=== PATIENT | male | born 1955 | race Caucasian/White ===

== ENCOUNTER 2023-06-17 21:37 | Inpatient (IN) | payer MEDICARE, OTHER, SELFPAY ==
[2023-06-17 17:51] VITALS: BP 149/91
[2023-06-17 18:27] VITALS: BP 157/86
[2023-06-17 18:30] VITALS: BP 157/86
[2023-06-17 19:00] VITALS: BP 154/81
[2023-06-17 19:25] LABS: % Eosinophils 0.3 % (0-6); % Immature Granulocytes 0.3 % (0-0.5); % Lymphocytes 7.1 % (20.5-51.1); % Monocytes 9.3 % (1.7-9.3); Absolute Lymphocytes 0.2 10^3/uL (1.2-3.4); Absolute Monocytes 0.3 10^3/uL (0.1-0.6); Absolute Neutrophils 2.6 10^3/uL (1.4-6.5); Hematocrit 21.8 % (39.0-52.0); Hemoglobin 7.5 g/dL (13.0-18.0); Mean Corp Hgb Conc. 34.4 g/dL (33.0-37.0); Mean Corpuscular Hgb 32.2 pg (27.0-31.0); Mean Corpuscular Volume 93.6 fL (80.0-94.0); Nucleated Red Blood Cells % 0 % (-); Red Blood Cell Count 2.33 10^6/uL (4.70-6.10); Red Cell Dist. Width 16.8 % (11.5-14.5); White Blood Cell Count 3.1 10^3/uL (4.8-10.8)
[2023-06-17 19:32] LABS: INR 1.25; PT 15.8 Sec (11.4-14.6)
[2023-06-17 19:33] LABS: APTT 34.7 Sec (23.4-35.0)
[2023-06-17 19:35] LABS: ALT (SGPT) 20 U/L (0-50); AST (SGOT) 30 U/L (17-59); Alkaline Phosphatase 83 U/L (38-126); Blood Urea Nitrogen 31 mg/dl (9-20); Calcium 8.4 mg/dl (8.4-10.2); Carbon Dioxide 19 mmol/L (22-30); Chloride 105 mmol/L (98-107); Glucose 67 mg/dl (70-99); Lipase < 10 U/L (23-300); Potassium 3.4 mmol/L (3.5-5.1); Sodium 133 mmol/L (135-145); Total Bilirubin 1.4 mg/dl (0.2-1.3); Total Protein 5.1 g/dl (6.3-8.2); eGFR > 60.00
--- NOTE | 2023-06-17 19:36 | ED.GENMED ---
History of Present Illness
General
Chief Complaint: Abdominal Pain
Source: patient
Time Seen by Provider: 06/17/23 18:38
Travel History
Have you had any contact with someone who has COVID-19?: No
Do you have any symptoms of coronavirus? Fever > 100 degrees, chills, cough, shortness of breath, sore throat, loss of taste or smell, muscle aches, or headache?: No
History of Present Illness
History of Present Illness:
68-year-old male with past medical history of pancreatic cancer with colon metastases and liver metastases presenting to the emergency department after he had an outpatient CT scan done last night which showed a small bowel obstruction. Patient
notes for around the last 6 days he has had persistent nausea and vomiting that he states was different than his usual postchemotherapy nausea and vomiting stating that anytime he would eat or drink he would either have vomiting or diarrhea. He
tried a brat diet for 3 days without any relief and then went to an all liquid diet which she states also did not work. He states he is not nauseous or having any pain presently and feels maybe a little bit dehydrated but otherwise his usual self.
He denies any fevers or chills or any other concerns.
Past History
Past History
ED Past Medical History: Cancer
ED Past Surgical History: Urological and Other
Social History
Tobacco: Non-smoker
Alcohol: None
Drug: None
Personal:
Living: with family
Employment: Retired
Review of Systems
Review of Systems
All Other Systems: ROS reviewed and negative except as documented in HPI and ROS
Phy Exam
Physical Exam
Physical Exam:
GENERAL: Alert , in no apparent distress, thin
EYE: clear conjunctiva b/l
HEAD: NCAT
ENT: o/p clr, mmm.
CARDIAC: Regular rate and rhythm .
LUNGS: Clear breath sounds bilaterally, no acute respiratory distress, no wheezes/rales/rhonchi
ABDOMEN: Soft, distended, hypoactive bowel sounds, without focal tenderness,no r/g, no cvat
NEUROLOGICAL: Alert and oriented
SKIN: Warm and dry, skin intact.
MUSCULOSKELETAL: No edema, well perfused.
PSYCH: Normal and appropriate interaction.
Scores
Heart Failure Risk
Heart Failure Risk Score: Not Applicable
Heart Score for Chest Pain Patients
STEMI patient?: Not applicable
Withdrawal Assessment of Alcohol
Withdrawal Assessment Completed?: Not applicable
Course
Orders/Labs/Results
Orders:
Orders
06/17/23 19:01
CR Obstruct Series W/pa Chest Urgent
Comment:
Reason For Exam: bowel obstruction, hx pancreatic cancer
06/17/23 19:07
Type+Screen Urgent
Complete Blood Count/With Diff Urgent
Comprehensive Metabolic Panel Urgent
Lipase Urgent
PTT Urgent
Prothrombin Time Urgent
06/17/23 19:42
NG Tube [GI tube insertion- Treatment] ONCE
06/17/23 20:00
0.9% Sodium Chloride 1000 ml [Nss] 1,000 ml IV 100 mls/hr
Abnormal Lab Results
06/17/23
19:07
WBC 3.1 L 10^3/uL
(4.8-10.8)
RBC 2.33 L 10^6/uL
(4.70-6.10)
Hgb 7.5 L g/dL
(13.0-18.0)
Hct 21.8 L %
(39.0-52.0)
MCH 32.2 H pg
(27.0-31.0)
RDW 16.8 H %
(11.5-14.5)
Plt Count 53 L 10^3/uL
(130-400)
Absolute Lymphs (auto) 0.2 L 10^3/uL
(1.2-3.4)
Neutrophils % 83.0 H %
(42.2-75.2)
Lymphocytes % 7.1 L %
(20.5-51.1)
PT 15.8 H Sec
(11.4-14.6)
Sodium 133 L mmol/L
(135-145)
Potassium 3.4 L mmol/L
(3.5-5.1)
Carbon Dioxide 19 L mmol/L
(22-30)
BUN 31 H mg/dl
(9-20)
Glucose 67 L mg/dl
(70-99)
Total Bilirubin 1.4 H mg/dl
(0.2-1.3)
Total Protein 5.1 L g/dl
(6.3-8.2)
Albumin 3.0 L g/dl
(3.5-5.0)
Lipase < 10 L U/L
(23-300)
06/17/23 19:07
06/17/23 19:07
Vital Signs
Initial and Last Documented VS:
Initial Vital Signs
Temp Pulse Resp BP Pulse Ox
98.3 F 90 16 149/91 100
06/17/23 17:51 06/17/23 17:51 06/17/23 17:51 06/17/23 17:51 06/17/23 17:51
Last Documented Vital Signs
Temp Pulse Resp BP Pulse Ox
98.3 F 79 16 157/86 97
06/17/23 17:51 06/17/23 18:30 06/17/23 18:30 06/17/23 18:30 06/17/23 18:30
MDM/Problems Addressed
Differential Diagnosis Includes:
bowel obstruction, worsening malignancy, electrolyte disturbance
MDM/Problems Addressed:
68-year-old male with known pancreatic cancer and known bowel obstruction presenting to the emergency department request of his cancer team to be admitted for treatment of bowel obstruction. Patient has been attempting brat diet and liquid diet
with no relief. Abdomen is distended. Will discuss case with general surgery. Plan to obtain x-ray obstructive series to evaluate. Lab work ordered. Will order fluids for hydration.
Chronic conditions affecting care: Cancer
Acute Exacerbation and/or Progression of Chronic Illness: Cancer
*Radiology
Radiology exam reviewed: preliminary read by ED provider (Small bowel obstruction)
*Pulse Oximetry
Patient hypoxic: no
*Critical Care Note
Total Time (30-74mins, 75-104mins- exclusive of procedures): Not Applicable
Data Reviewed
Review of Other/Old Records Reveals: Radiology Studies
Patient Management
Discussion with other providers: Hospitalist and Soldering Machine Operator Helper
Escalation/DeEscalation of care consider admission/obs:
Case discussed with surgery who is requesting an NG tube be placed. They will consult on the patient in the morning. Hospitalist team is aware and accepts for continued evaluation and treatment. Due to patient's hemoglobin of 7.5 I did consent
him for blood products if hemoglobin continues to drop.
ED Attending Note
-
Portions of this chart may have been created with voice recognition software.� Occasional wrong word or��sound alike� substitutions may have occurred due to the inherent limitations of voice recognition software.
Discharge Plan
Departure
Patient Disposition: Admit
Date of Disposition: 06/17/23
Time of Disposition: 19:53
Presentation/result/management discussed w/ accepting MD/DO: Hospitalist
Discharge Problem:
Small bowel obstruction
Prescriptions:
No Action
valsartan 160 mg Tablet
160 mg PO DAILY
oxycodone 10 mg Tablet
10 mg PO HSPRN PRN (Reason: severe pain)
Creon 24,000-76,000 -120,000 unit Capsule,Delayed Release(Dr/Ec)
3 cap PO MEALS
rivaroxaban 10 mg Tablet
10 mg PO .SEE BELOW
Patient Comments:
06/17/2023, pt. stopped taking this med. in anticipation for invasive surgery. Prescribed to take daily.
loperamide [Imodium] 2 mg Capsule
2 mg PO DIRECTED PRN (Reason: diarrhea)
Rx Instructions:
06/17/2023, take 2 capsules at onset of loose stool and then one capsule for additional loose stool thereafter.
Interventions
Interventions:
*Risk Screen - Suicide Last Done: 06/17/23 17:51
*General Assessment Last Done: 06/17/23 17:51
*Neglect/Abuse Screening Last Done: 06/17/23 17:51
*ED COVID-19 Vaccine History Last Done: 06/17/23 17:51
XI-Hhxajq-Jtckhlxizf Assessment Last Done: 06/17/23 17:51
Discharge Date and Time
Print Language: MEXICAN
[2023-06-17 19:38] LABS: Mean Platelet Volume 10.1 fL (7.4-10.4)
[2023-06-17 19:39] LABS: Platelet Count 53 10^3/uL (130-400)
[2023-06-17 20:23] VITALS: BP 152/82
--- NOTE | 2023-06-17 20:23 | PHANOTE ---
06/17/2023, med rec tech, spoke to pt. to obtain their med. history; pt. states to have stopped taking his ferrous sulfate 325 mg BID about a week ago. Did not include on med rec.
[2023-06-17 21:00] VITALS: BP 160/88
[2023-06-17] MEDS: NSS 1000 IV (21:11)
--- NOTE | 2023-06-17 21:11 | HPS.HSE ---
Family Physician
-
Family Physician:
Chief Complaint
-
N/V, Abd Pain
History of Present Illness
Patient is a 68y M with PMH significant for pancreatic cancer who presents to ED complaining of abdominal pain, nausea and vomiting. Patient is on chemotherapy for pancreatic cancer and states that his last treatment was 06/10. He has been
having crampy abdominal pain, intermittent loose / liquid stools, mid-abdominal pain and nausea with emesis. He denies any black / bloody stools, hematemesis, etc. Patient has CT scans every 3 months for surveillance and notes that he went early
for this CT (only one month since last scan) due to his new symptoms. He denies any fevers or chills. No urinary complaints. No cough, chest pain, etc.
CT scan done 06/15 at [place], [place] showed pancreatic cancer with serosal implants and evidence for proximal small bowel obstruction.
Patient was contacted at 3PM today with these results and presented to the ED here for further evaluation and treatment.
Patient was initially diagnosed with pancreatic adenocarcinoma about 2 years ago. He has been treated with chemotherapy including FOLFIRINOX followed by FOLFIRI. This was changed to Abraxane + gemcitabine in July 2022 due to progression of disease.
He has remained on this regimen since that time. Patient also underwent 15 sessions of XRT in 02/2022.
He has been followed at [facility].
Medical History
Past Medical History
Past Medical History: Reports Other
Additional Past Medical History:
Stage IV Pancreatic Adenocarcinoma
Prostate Cancer
Chronic Lymphedema
Nephrolithiasis
Past Surgical History: Reports Other
Additional Past Surgical History:
T&A
Left Inguinal Open Hernia Repair
Septoplasty
Robotic Prostatectomy
R ACW Port Placement
Social History
Tobacco: Non-smoker
Alcohol: None
Drug: None
Family History
Family History: Not pertinent
Allergies / Home Medications
Allergies reflects when Allergies were last updated in [facility].
Home Medications with original date entered in [facility]
Allergy/Medication List:
Allergies
Allergy/AdvReac Type Severity Reaction Status Date / Time
No Known Allergies Allergy Unverified 06/17/23 17:57
Home Medications
vcpemx-rxpxevqu-yulfmcd 24,000-76,000-120,000 unit capsule,delayed rel (Creon) 3 cap PO MEALS 06/17/23
loperamide 2 mg capsule 2 mg PO DIRECTED PRN diarrhea 06/17/23
oxycodone 10 mg tablet 10 mg PO HSPRN PRN severe pain 06/17/23
rivaroxaban 10 mg tablet 10 mg PO .SEE BELOW 06/17/23
valsartan 160 mg tablet 160 mg PO DAILY 06/17/23
Review of Systems
-
History Source: Patient
A 12 point ROS was completed and negative except as noted: Yes
Constitutional: Reports Fatigue; Denies Fever or Chills
Respiratory: Denies Cough or Trouble Breathing
Cardiac: Denies Chest Pain or Palpitations
Abdomen/GI: Reports Abdominal Pain, Nausea, Vomiting and Diarrhea; Denies Bloody Stools or Black Stools
: Denies Dysuria, Frequency or Flank Pain
Musculoskeletal: Reports Edema; Denies Joint Pain
Neurological: Denies Dizzy or Headache
Psych: Denies Depression or Anxiety
Physical Exam
Vital Signs
Vital Signs
Temp Pulse Resp BP Pulse Ox
98.3 F 80 17 160/88 98
06/17/23 17:51 06/17/23 19:00 06/17/23 19:00 06/17/23 21:00 06/17/23 21:01
Physical Exam
General: Other (Pale, cachectic 68y M in mild distress due to nausea / discomfort.)
HEENT: Other (NG in place in L nostril. Some mild oozing blood. Dry MM.)
Respiratory: Clear; No Wheezes, Rales or Rhonchi
Cardiac: S1/S2 and Regular Rhythm; No Murmur
GI: Soft, Non Distended and Other (High-pitched bowel sounds are present. Pos lower abdominal tenderness and voluntary guarding. )
Musculoskeletal: No Clubbing, No Cyanosis and Other (1+ LE edema with chronic venous stasis skin changes, erythema, hyperkeratosis.)
Neuro: AO x 3
Laboratory Results
-
06/17/23 19:07
06/17/23 19:07
Laboratory Results
PT 15.8 Sec (11.4-14.6) H 06/17/23 19:07
INR 1.25 06/17/23 19:07
APTT 34.7 Sec (23.4-35.0) 06/17/23 19:07
Total Bilirubin 1.4 mg/dl (0.2-1.3) H 06/17/23 19:07
AST 30 U/L (17-59) 06/17/23 19:07
ALT 20 U/L (0-50) 06/17/23 19:07
Alkaline Phosphatase 83 U/L (38-126) 06/17/23 19:07
Lipase < 10 U/L (23-300) L 06/17/23 19:07
Impression/Plan
-
A/P: Patient is a 68y M with PMH significant for pancreatic cancer on chemotherapy who presents to ED complaining of abd pain, N/V/D and had outpatient CT showing SBO.
Partial SBO
- Admit for further evaluation and treatment.
- Patient notes that he continues to have occasional loose / liquid stools.
- NG placed in the ED for decompression.
- CT done at [facility] yesterday shows serosal implants and SBO. Report on chart. Will send for images / CD.
- Supportive care including NPO, IVFs, pain control, etc.
- Surgery evaluation.
- Follow for any new / worsening symptoms.
Stage IV Adenocarcinoma of the Pancreas
- Hold active chemotherapy acutely (last dose was 06/10).
- Continue supportive care including pain control, etc.
- Local Oncology evaluation.
Pancytopenia
- Likely secondary to chemotherapy.
- Follow for changes in cell counts and consider transfusion support if needed.
- Patient is not currently neutropenic.
Benign Hypertension
- On ARB for BP and lymphedema management.
- Hold acutely and resume once able to tolerate POs.
Chronic Lymphedema
Chronic Venous Stasis Skin Changes
- LE skin changes secondary to lymphedema versus chemo.
- Wound Care eval for topical care recommendations.
DVT Prophylaxis: SCDs
Code Status: DNR
[2023-06-17 21:57] VITALS: BMI 21.5
[2023-06-17] MEDS: D5LR 1000 IV (22:39)
[2023-06-18] VITALS (26 sets, daily range): BP systolic 145–177; BP diastolic 77–97; PULSE 78–98; BMI 21.8
--- NOTE | 2023-06-18 00:16 | SUR.PHASEI ---
Pt AAOx3, NSR on monitor. 96% on RA. Pt able to ambulate from stretcher to bed with assist of one. C/o mild chronic abdominal pain which he denies intervention for. D5Lr running through L forearm at 100mls/hr, per MAY. NGT patent in L nare with a
small amount of sanguinous drainage at insertion site. Call harrison placed within reach. Pt instructed to notify this RN of worsening signs/symptoms
[2023-06-18 05:22] LABS: Mean Corp Hgb Conc. 34.4 g/dL (33.0-37.0); Mean Corpuscular Hgb 32.2 pg (27.0-31.0); Mean Corpuscular Volume 93.6 fL (80.0-94.0); Mean Platelet Volume 12.2 fL (7.4-10.4); Platelet Count 48 10^3/uL (130-400); Red Blood Cell Count 2.02 10^6/uL (4.70-6.10); Red Cell Dist. Width 16.4 % (11.5-14.5); White Blood Cell Count 2.8 10^3/uL (4.8-10.8)
[2023-06-18 05:36] LABS: Hematocrit 18.9 % (39.0-52.0); Hemoglobin 6.5 g/dL (13.0-18.0)
[2023-06-18 05:42] LABS: Blood Urea Nitrogen 29 mg/dl (9-20); Calcium 8.1 mg/dl (8.4-10.2); Carbon Dioxide 24 mmol/L (22-30); Chloride 104 mmol/L (98-107); Estimated Creatinine Clearance 73 ml/min; Glucose 86 mg/dl (70-99); Potassium 3.2 mmol/L (3.5-5.1); Sodium 136 mmol/L (135-145); eGFR > 60.00
--- NOTE | 2023-06-18 06:06 | PTCARENOTE ---
Addendum entered by Sloane Echevarria 06/18/23 07:45:
HR noted to increase from 70s-80s to 130s-140s with standing.
Original Note:
Pt AAOx3, NSR on monitor. 96% on RA. Pt able to ambulate from stretcher to bed with assist of one. C/o mild chronic abdominal pain which he denies intervention for. D5Lr running through L forearm at 100mls/hr, per MAY. NGT patent in L nare with a
small amount of sanguinous drainage at insertion site. Call harrison placed within reach. Pt instructed to notify this RN of worsening signs/symptoms. Pt did not void throughout shift. This RN bladder scanned for >400, prompted pt to void. Pt used BSCx1
to pass liquid BM and void in urinal 250ml. This RN performed post void residual BS for 190. Pt instructed to continue to void as needed and this RN will pass along to nursing need for continued bladder scan.
[2023-06-18] MEDS: KCL 270 MEQ IV (06:20)
[2023-06-18] MEDS: NSS (PRESERVATIVE FREE) 10 ML IV (08:47)
[2023-06-18] MEDS: PROTONIX IV 40 MG IV (08:48)
[2023-06-18] MEDS: APRESOLINE 5 MG IV (08:52)
[2023-06-18] MEDS: D5LR 1000 IV (09:21)
--- NOTE | 2023-06-18 10:40 | PTCARENOTE ---
First of 2 units PRBCs hung at 10:30. Pt with no s/s transfusion reaction at this time.
--- NOTE | 2023-06-18 10:44 | WOUNDNOTE ---
[facility] RN note: Patient admitted with abdominal pain n/v
See H&P for complete history.
PMH: Pancreatic cancer, last chemo 3/, lymphedema
Wound Location and type/assessment: Patient admitted with: Skin changes to LE caused by chemo vs. venous stasis. Patient also has had lymphedema in thighs/scrotum during cancer treatment, but this has resolved. LE are dry, skin is pink in
appearance. + pedal pulses, trace edema. Patient wearing pneumatic compression as ordered. Sacrum and heels intact
Appetite: Currently NPO
Pressure redistribution devices in place: Centrella Max Air with heels off-loaded on pillows. Patient is able to turn and reposition self in bed and states he ambulates from house to mailbox daily.
Plan: Aquaphor to LE. Patient given Size F Tubi budget record clerk for use at home. He also wears compression stockings at home but would like to try the tubi-budget record clerk. Will confirm orders with hospitalist and update nurse. Updated care plan and will follow as
needed.
--- NOTE | 2023-06-18 10:52 | CON.GS ---
Medical History
-
Chief Complaint: Abdominal pain, nausea, emesis
History of Present Illness:
Patient is a 68 yo M with PMH of nephrolithiasis, prostate cancer s/p robotic prostatectomy in 2020, s/p open RIGHT inguinal hernia repair with mesh, and stage IV prostate cancer with known mets to the liver, abdominal cavity, RIGHT lung, and
pelvis. Initial diagnosis of his pancreas cancer just under 2 years ago. He currently has been receiving oncologic care through [facility] in [facility]. Previously on FOLFIRINOX, followed by FOLFIRI, and currently on
Gemcitabine and Abraxane. His last treatment was on 06/10. He also underwent XRT in 2021. He states that over the past month he has had 2 prior attacks of more severe abdominal discomfort which lasted a few days before self resolving. Recently he
has had approximately 1 week of worsening crampy abdominal pain, nausea, and vomiting. He has continued to pass flatus and loose, nonbloody stools. He denies any dark tarry stools. He was initially on a softer food diet, but then transition to a
liquid diet with persistence of his symptoms. He underwent an outpatient CT scan in [place] with a report concerning for proximal small bowel obstruction secondary to mid abdominal serosal implant, unchanged pancreatic mass and hepatic
metastases, increased ascites and bilateral pleural effusions. He denies any fevers or chills. Currently he states that his abdominal pain is slightly improved.
Past Medical History
Past Medical History: Cancer (Prostate and pancreatic), HTN and Other (Pancreatic insufficiency, nephrolithiasis)
Past Surgical History: Hernia Repair (Open RIH) and Urological (Robotic prostatectomy)
Social History
Tobacco: Non-Smoker
Alcohol: Former (Used to drink 2 a day, quit years ago)
Drug: None
Personal:
Living: With Family
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
Family History
Family History: Reviewed & Noncontributory
Allergies / Home Medications
Allergy/AdvReac Type Severity Reaction Status Date / Time
No Known Allergies Allergy Unverified 06/17/23 17:57
�Medication �Instructions �Recorded �Confirmed �Type
nrazrb-iiqprlps-bpwgimz 3 cap PO MEALS Gastrointestinal 06/17/23 06/17/23 History
24,000-76,000-120,000 unit Issue
capsule,delayed rel (Creon)
loperamide 2 mg capsule 2 mg PO DIRECTED PRN diarrhea 06/17/23 06/17/23 History
oxycodone 10 mg tablet 10 mg PO HSPRN PRN severe pain 06/17/23 06/17/23 History
rivaroxaban 10 mg tablet 10 mg PO .SEE BELOW Blood 06/17/23 06/17/23 History
Clot Prevention/Tx
valsartan 160 mg tablet 160 mg PO DAILY Blood Pressure 06/17/23 06/17/23 History
Review of Systems
-
A 10 point review of systems was completed, and was negative except as per HPI.
Physical Exam
Vital Signs
Temp Pulse Resp BP Pulse Ox
98.1 F 78 9 153/83 97
06/18/23 10:49 06/18/23 10:49 06/18/23 10:49 06/18/23 10:49 06/18/23 10:49
06/17/23 06/18/23 06/19/23
06:59 06:59 06:59
Actual Weight 66.9 kg
Body Mass Index (BMI) 21.8
Lab Results
06/18/23 04:51
06/18/23 04:51
WBC 2.8 10^3/uL (4.8-10.8) L 06/18/23 04:51
Hgb 6.5 g/dL (13.0-18.0) L* 06/18/23 04:51
Hct 18.9 % (39.0-52.0) L* 06/18/23 04:51
Plt Count 48 10^3/uL (130-400) L 06/18/23 04:51
Abs Immat Gran (auto) 0.0 10^3/uL (0-0.05) 06/17/23 19:07
Neutrophils % 83.0 % (42.2-75.2) H 06/17/23 19:07
Physical Exam
General: No Apparent Distress and Other (Cachectic)
HEENT: Scleral Icterus (Mild) and Other (NGT with non-bilious outputs)
Respiratory: Non Labored Respirations
Cardiac: Regular Rhythm
GI: Soft, Non Tender, Distended (Mild/moderate), Incisions (Well healed) and Other (Non-peritoneal)
Genito-urinary: Inguinal Hernia (LIH, reducible)
Musculoskeletal: No Edema
Skin: Warm and Dry
Neuro: Nonfocal/Grossly Intact
Data Reviewed
-
Radiology: Image Personally Visualized and interpreted and Report Reviewed by me
CT Scan: Report Reviewed by me (Oupatient CT scan)
Labs: Labs Reviewed by me
Assessment / Plan
-
Patient is a 68 yo M p/w malignant SBO secondary to metastatic pancreatic cancer
Role of surgery for palliative bypass was reviewed. We also briefly discussed option of palliative PEG or J-tube, however, limitations of PEG as a relates to decompression and inability to use for enteral access as well as limitations of J-tube for
decompressing obstruction were reviewed. He is at increased risk for operative complications both immediately on long-term. Risks of anastomotic leak, wound complications, and recurrent obstructions were reviewed. Currently, he is a poor operative
candidate given his leukopenia, anemia, thrombocytopenia. Oncology consult noted. Recommend palliative care consult. Optimization for OR over the ensuing days. Recommend medical management with NGT decompression. Tentative plan for a repeat CT
scan of the abdomen pelvis with oral and IV contrast tomorrow, for potential operative planning, confirmation of persistent SBO, and to rule out a more distal obstruction (reports of perirectal mass on outpatient CT). Patient is very understanding
and well versed, agrees with management strategy.
-- NPO, NGT decompression
-- Plan to initiate TPN, port in place and position confirmed
-- Medical management and optimization over the ensuing days, may need platelet transfusion
-- Repeat CT with PO and IV contrast tomorrow
-- Oncology consult noted
-- Rec Palliative care consult
--- NOTE | 2023-06-18 11:35 | CON.ONC ---
Impression
Impression
Pancytopenia post Gemzar and Abraxane
SBO likely secondary to progressive disease
Left lower lobe infiltrate/atelectasis symptomatic
Anemia hemoglobin 6.5 g/dL following hydration
Plan
Plan
Patient appears to have progressed on 2 lines of standard of care therapy current progression may be related to decreased density
Transfuse hemoglobin < 7.0 g/dl platelets <20 K
Continue supportive measures
Previously refused to clinical trial
Welcome to transition his oncology care to [place]
Patient History
History of Present Illness
Patient is a 68 yo M with PMH of nephrolithiasis, prostate cancer s/p robotic prostatectomy in 2020 and stage IV pancreatic cancer with known mets to the liver, abdominal cavity lung, and pelvis. Initial diagnosis of his pancreas cancer just under
2 years ago. He currently has been receiving oncologic care through [facility] in [facility]. Previously on FOLFIRINOX modified to FOLFIRI=>PD=>Gemcitabine and Abraxane. Dose intensity has been difficult secondary to
renal insufficiency and pancytopenia. Current and clinical circumcised likely reflect progressive disease with last treatment was on 06/10. He also underwent XRT in 2021. He states that over the past month he has had 2 prior episodes of severe
abdominal discomfort which lasted a few days before self resolving. Recently he has had approximately 1 week of worsening crampy abdominal pain, nausea, and vomiting. He has continued to pass flatus and loose, nonbloody stools. He denies any dark
tarry stools. He was initially on a softer food diet, but then transition to a liquid diet with persistence of his symptoms. He underwent an outpatient CT scan in [place] with a report concerning for proximal small bowel obstruction secondary
to mid abdominal serosal implant, unchanged pancreatic mass and hepatic metastases, increased ascites and bilateral pleural effusions. He denies any fevers or chills. Currently he states that his abdominal pain is slightly improved with NG tube in
place.
Past-Medical/Surgical History
Past Medical History
Past Medical History: Cancer local prostate carcinoma status post prostatectomy and more recently metastatic pancreatic, HTN and nephrolithiasis
Past Surgical History: Hernia Repair (Open RIH) and Urological (Robotic prostatectomy)
Social History
Tobacco: Non-Smoker
Alcohol: Former (Used to drink 2 a day, quit years ago)
Drug: None
Personal:
Living: With Family
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
Family History
Family History: Reviewed & Noncontributory
Patient Medication
�Medication �Instructions �Recorded �Confirmed �Last Taken �Type
[id number] 3 cap PO MEALS Gastrointestinal 06/17/23 06/17/23 06/16/23 History
24,000-76,000-120,000 unit Issue
capsule,delayed rel (Creon)
loperamide 2 mg capsule 2 mg PO DIRECTED PRN diarrhea 06/17/23 06/17/23 06/12/23 History
4 mg
oxycodone 10 mg tablet 10 mg PO HSPRN PRN severe pain 06/17/23 06/17/23 06/17/23 01:00 History
rivaroxaban 10 mg tablet 10 mg PO .SEE BELOW Blood 06/17/23 06/17/23 06/13/23 History
Clot Prevention/Tx
valsartan 160 mg tablet 160 mg PO DAILY Blood Pressure 06/17/23 06/17/23 06/16/23 History
Active Medications
Generic Name Dose Route Start Last Admin
Trade Name Freq PRN Reason Stop Dose Admin
Acetaminophen 650 mg 06/17/23 21:49
Acetaminophen 650 Mg Rectal Suppository RECTAL 07/15/23 21:48
Q4HPRN PRN
mild pain/PATRICIO/temp> 100.4F
Dextrose 12.5 grams 06/17/23 21:49
Dextrose 50% (0.5 Grams/Ml) 50 Ml Syringe IV 07/15/23 21:48
[id number] PRN
hypoglycemia
Protocol
Emollient Ointment 0 applic 06/18/23 11:00
Petrolatum/Mineral Oil (Hydrophor) Oint 100 Gram TOPICAL 07/16/23 10:59
DAILY AZUL
Glucagon 1 mg 06/17/23 21:49
Glucagon 1 Mg Vial IM 07/15/23 21:48
PRN PRN
hypoglycemia
Protocol
Hydralazine HCl 5 mg 06/18/23 08:12 06/18/23 08:52
Hydralazine 20 Mg/Ml Vial IV 07/16/23 08:11 5 mg
Q6HPRN PRN Administration
SBP>160
Hydromorphone HCl 0.5 mg 06/17/23 21:49
Hydromorphone 0.5 Mg/0.5 Ml Syringe IV 07/01/23 21:48
Q4HPRN PRN
severe pain
Dextrose/Lactated Ringer's 1,000 mls @ 100 mls/hr 06/17/23 22:00 06/18/23 09:21
D5lr IV 1,000 mls
.Q10H AZUL Administration
Ondansetron HCl 4 mg 06/17/23 21:49
Ondansetron 4 Mg/2 Ml Vial IV 07/15/23 21:48
Q6HPRN PRN
nausea and vomiting
Pantoprazole Sodium 40 mg 06/18/23 08:00 06/18/23 08:48
Pantoprazole Sodium 40 Mg/10 Ml Vial IV 07/16/23 07:59 40 mg
DAILY AZUL Administration
Sodium Chloride 0 flush 06/17/23 22:00
Sodium Chloride 0.9% (Flush) Syringe IV 07/15/23 21:59
PER PROTOCOL AZUL
Sodium Chloride 10 ml 06/18/23 08:00 06/18/23 08:47
Sodium Chloride 0.9% (Preservative Free) 10 Ml Vial IV 07/16/23 07:59 10 ml
DAILY AZUL Administration
Review of Systems
-
10 point review of systems failed to elicit additional complaints other than those reviewed in the HPI.
Physical Exam
-
Physical Exam
General: No Apparent Distress and Cachectic
HEENT: Scleral Icterus NGT with non-bilious outputs
Respiratory: Non Labored Respirations
Cardiac: Regular Rhythm
GI: Soft, Non Tender, Distended Mild/moderate
Musculoskeletal: No Edema
Skin: Warm and Dry
Neuro: Nonfocal/Grossly Intact
Labs
Lab Results
WBC 2.8 10^3/uL (4.8-10.8) L 06/18/23 04:51
RBC 2.02 10^6/uL (4.70-6.10) L 06/18/23 04:51
Hgb 6.5 g/dL (13.0-18.0) L* 03 04:51
Hct 18.9 % (39.0-52.0) L* 06/18/23 04:51
MCV 93.6 fL (80.0-94.0) 06/18/23 04:51
MCH 32.2 pg (27.0-31.0) H 06/18/23 04:51
MCHC 34.4 g/dL (33.0-37.0) 06/18/23 04:51
RDW 16.4 % (11.5-14.5) H 06/18/23 04:51
Plt Count 48 10^3/uL (130-400) L 06/18/23 04:51
MPV 12.2 fL (7.4-10.4) H 06/18/23 04:51
Abs Immat Gran (auto) 0.0 10^3/uL (0-0.05) 06/17/23 19:07
Absolute Neuts (auto) 2.6 10^3/uL (1.4-6.5) 06/17/23 19:07
Absolute Lymphs (auto) 0.2 10^3/uL (1.2-3.4) L 06/17/23 19:07
Absolute Monos (auto) 0.3 10^3/uL (0.1-0.6) 06/17/23 19:07
Absolute Eos (auto) 0.0 10^3/uL (0-0.7) 06/17/23 19:07
Absolute Basos (auto) 0.0 10^3/uL (0-0.2) 06/17/23 19:07
Immature Gran % 0.3 % (0-0.5) 06/17/23 19:07
Neutrophils % 83.0 % (42.2-75.2) H 06/17/23 19:07
Lymphocytes % 7.1 % (20.5-51.1) L 06/17/23 19:07
Monocytes % 9.3 % (1.7-9.3) 06/17/23 19:07
Eosinophils % 0.3 % (0-6) 06/17/23 19:07
Basophils % 0.0 % (0-2) 06/17/23 19:07
Creatinine 0.9 mg/dL (0.7-1.3) 06/18/23 04:51
Vital Signs
Vital Signs
Temp Pulse Resp BP Pulse Ox
98.2 F 78 9 153/83 97
06/18/23 11:12 06/18/23 10:49 06/18/23 10:49 06/18/23 10:49 06/18/23 10:49
--- NOTE | 2023-06-18 12:50 | W.PN.HOSP.TC ---
Today's Communication/Plan
-
continue NPO/IVF/NGT
2 unit PRBCs
follow CBC
follow GS recs; repeat CT tomorrow
Assessment / Plan
Assessment / Plan
Assessment:
Partial SBO
- Patient notes that he continues to have occasional loose / liquid stools.
- continue NGT decompression
- Supportive care including NPO, IVFs, pain control, etc.
- GS following
- plan for repeat CT IV/PO contrast tomorrow
- possibly surgical intervention early next week when medically optimized.
stage IV pancreatic cancer with known mets to the liver, abdominal cavity lung, and pelvis
- receiving oncologic care through [facility] in [facility]. Previously on FOLFIRINOX modified to FOLFIRI=>PD=>Gemcitabine and Abraxane. prior XRT 2021.
- Continue supportive care including pain control, etc.
- Onc following
Pancytopenia
- Likely secondary to chemotherapy.
- Patient is not currently neutropenic.
- Hb 6.5 - 2 units ordered
- platelets 48 - d/w GS will need platelets >50 prior to any surgery
Benign Hypertension
- On ARB for BP and lymphedema management.
- Hold acutely and resume once able to tolerate POs.
Chronic Lymphedema
Chronic Venous Stasis Skin Changes
- LE skin changes secondary to lymphedema versus chemo.
- Wound Care eval for topical care recommendations.
DVT Prophylaxis: SCDs
Code Status: DNR
Anticipated Discharge: > 48 hours
Subjective/Interval History
-
Date of Service: June 18, 2023
patient denies any pain currently
Objective Data
-
Labs:
Laboratory Results
06/18/23
04:51
WBC 2.8 L
Hgb 6.5 L*
Hct 18.9 L*
Plt Count 48 L
Sodium 136
Potassium 3.2 L
Chloride 104
Carbon Dioxide 24
BUN 29 H
Creatinine 0.9
Glucose 86
Calcium 8.1 L
Vital Signs:
Vital Signs
Temp Pulse Resp BP Pulse Ox
98.2 F 78 9 153/83 97
06/18/23 11:12 06/18/23 10:49 06/18/23 10:49 06/18/23 10:49 06/18/23 10:49
I&O
06/17/23 06/18/23 06/19/23
06:59 06:59 06:59
Intake Total 270 / 270
Output Total 250 / 250 250 / 250
Balance -250 / -250 20 / 20
Physical Exam
-
General: No Apparent Distress
HEENT: Normocephalic, Atraumatic and Other (NGT)
Respiratory: Negative Wheezes
Cardiac: Regular Rhythm and S1/S2
GI: Soft
Genito-urinary: No Costovertebral Tender
Musculoskeletal: No Edema
Neuro: AO x 3
Hematologic / Lymphatic: No Lymphadenopathy
Psych: Calm
Data Reviewed
-
Total Time Spent with Patient (in minutes): 45
Labs: Labs Reviewed by me
[2023-06-18] MEDS: HYDROPHOR 1 APPLIC TOPICAL (13:11)
[2023-06-18 14:07] LABS: Glycohemoglobin (HgbA1c) 5.1 % (4.0-5.6)
--- NOTE | 2023-06-18 15:05 | PTCARENOTE ---
Second unit PRBC's ordered. Pt did have pos orthos. No c/o dizziness or lightheadedness. 2nd BM on bsc at this time. at bedside visiting. Pt remains very pleasant and cooperative, no needs at this time.
[2023-06-18 15:10] LABS: Magnesium 2.1 mg/dl (1.6-2.3); Phosphorus 3.1 mg/dl (2.5-4.5); Potassium 3.5 mmol/L (3.5-5.1)
--- NOTE | 2023-06-18 15:24 | CM ---
Addendum entered by Edie Winslow RN 06/18/23 16:02:
PT/OT Evals pending.
Plan follow up after PT/OT Evals.
Plan follow up referral to [facility].
Original Note:
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 Plan surgery for palliative bypass, TPN. Room air. NPO/NGT/IVF.
Met with patient who resides with his Kailey in a 2 story house with 2 JUAN.
The patient has been independent in ADLs and ambulation.
DME - crutches
The patient has no prior VN or SNF.
The patient does not have a PCP. He moved from [place] 2 yrs ago and has only been seeing his oncologist at [facility].
Pharmacy - [facility]
Patient's is well and assists him at home. He has 2 sons, 1 in [place] & 1 in [place].
The patient initiated a discussion saying he is unsure whether he should be thinking about plans for end of life and hospice. Offered pastoral care/director speech and patient declined. He says he is not afraid of dying. Patient expressed that he is
hoping MD will discuss his status and prognosis with him---> information forwarded to Dr Christensen. Also noting Dr Merchant recommendation for Palliative Care.
Patient is interested in having VN at home. CM told him will look for an agency to accept him that can provide MD to follow him, as he has no PCP.
Referral to [facility] with question could they accept this patient who has no PCP.
CM continuing to follow for d/c needs.
Plan follow up referral to [facility].
[2023-06-18] MEDS: D5LR IV (15:31)
--- NOTE | 2023-06-18 18:13 | PTCARENOTE ---
Pt tolerated 2nd unit blood, reports feeling better overall. Assisted oob to use commode again for BM, no further needs at this time.
[2023-06-18 21:26] LABS: Glucose - Point of Care 84 mg/dl (70-99)
[2023-06-19] VITALS (14 sets, daily range): BP systolic 113–167; BP diastolic 49–99; PULSE 74; O2SAT 96; BMI 21.6
[2023-06-19] MEDS: D5LR 1000 IV ×2 (04:03→16:07)
[2023-06-19 04:40] LABS: % Basophils 0.3 % (0-2); % Eosinophils 1.3 % (0-6); % Immature Granulocytes 0.5 % (0-0.5); % Lymphocytes 8.6 % (20.5-51.1); % Monocytes 15.1 % (1.7-9.3); % Neutrophils 74.2 % (42.2-75.2); Absolute Eosinophils 0.1 10^3/uL (0-0.7); Absolute Lymphocytes 0.3 10^3/uL (1.2-3.4); Absolute Monocytes 0.6 10^3/uL (0.1-0.6); Absolute Neutrophils 2.9 10^3/uL (1.4-6.5); Hematocrit 24.2 % (39.0-52.0); Mean Corp Hgb Conc. 33.9 g/dL (33.0-37.0); Mean Corpuscular Hgb 31.4 pg (27.0-31.0); Mean Corpuscular Volume 92.7 fL (80.0-94.0); Mean Platelet Volume 10.9 fL (7.4-10.4); Nucleated Red Blood Cells % 0 % (-); Platelet Count 43 10^3/uL (130-400); Red Blood Cell Count 2.61 10^6/uL (4.70-6.10); Red Cell Dist. Width 16.9 % (11.5-14.5); White Blood Cell Count 3.8 10^3/uL (4.8-10.8)
[2023-06-19 04:45] LABS: Hemoglobin 8.2 g/dL (13.0-18.0)
[2023-06-19 05:26] LABS: ALT (SGPT) 14 U/L (0-50); AST (SGOT) 24 U/L (17-59); Albumin 2.2 g/dl (3.5-5.0); Alkaline Phosphatase 72 U/L (38-126); Blood Urea Nitrogen 23 mg/dl (9-20); Carbon Dioxide 25 mmol/L (22-30); Chloride 108 mmol/L (98-107); Estimated Creatinine Clearance 73 ml/min; Glucose 85 mg/dl (70-99); Potassium 3.3 mmol/L (3.5-5.1); Sodium 138 mmol/L (135-145); Total Bilirubin 1.6 mg/dl (0.2-1.3); eGFR > 60.00
[2023-06-19] MEDS: KCL 40 MEQ PO (06:12)
[2023-06-19 06:25] LABS: Glucose - Point of Care 102 mg/dl (70-99)
[2023-06-19] MEDS: HYDROPHOR 1 APPLIC TOPICAL (08:51)
[2023-06-19] MEDS: NSS (PRESERVATIVE FREE) 10 ML IV (08:52)
[2023-06-19] MEDS: PROTONIX IV 40 MG IV (08:52)
--- NOTE | 2023-06-19 10:05 | W.PN.HOSP.TC ---
Addendum entered and electronically signed by Luz Marina Christensen MD 06/19/23 10:12:
hypokalemia
Original Note:
Today's Communication/Plan
-
NGT clamped
follow GS recs
follow CBC and optimize counts as indicated
Assessment / Plan
Assessment / Plan
Assessment:
Partial SBO vs chemo enteritis
- Patient notes that he continues to have occasional loose / liquid stools.
- continue NGT - now on clamp trials
- Supportive care including NPO, IVFs, pain control, etc.
- GS following
stage IV pancreatic cancer with known mets to the liver, abdominal cavity lung, and pelvis
- receiving oncologic care through [facility] in [facility]. Previously on FOLFIRINOX modified to FOLFIRI=>PD=>Gemcitabine and Abraxane. prior XRT 2021.
- Continue supportive care including pain control, etc.
- Onc following
Pancytopenia
- Likely secondary to chemotherapy.
- Patient is not currently neutropenic.
- Hb 8.2, s/p 2 units PRBCs
- platelets 43
Benign Hypertension
- On ARB for BP and lymphedema management.
- Hold acutely and resume once able to tolerate POs.
Chronic Lymphedema
Chronic Venous Stasis Skin Changes
- LE skin changes secondary to lymphedema versus chemo.
- Wound Care eval for topical care recommendations.
DVT Prophylaxis: SCDs
Code Status: DNR
Anticipated Discharge: > 48 hours
Subjective/Interval History
-
Date of Service: June 19, 2023
no complaints at present
NGT clamped this AM
Objective Data
-
Labs:
Laboratory Results
06/19/23
04:02
WBC 3.8 L
Hgb 8.2 L D
Hct 24.2 L
Plt Count 43 L
Sodium 138
Potassium 3.3 L
Chloride 108 H
Carbon Dioxide 25
BUN 23 H
Creatinine 0.9
Glucose 85
Calcium 8.0 L
Total Bilirubin 1.6 H
AST 24
ALT 14
Alkaline Phosphatase 72
Vital Signs:
Vital Signs
Temp Pulse Resp BP Pulse Ox
98.3 F 68 16 146/82 95
06/19/23 07:16 06/19/23 06:00 06/19/23 06:00 06/19/23 06:00 06/19/23 06:00
I&O
06/18/23 06/19/23 06/20/23
06:59 06:59 06:59
Intake Total 860 / 860
Output Total 250 / 250 725 / 725
Balance -250 / -250 135 / 135
Physical Exam
-
General: No Apparent Distress
HEENT: Normocephalic and Atraumatic
Respiratory: Negative Wheezes or Rales
Cardiac: Regular Rhythm and S1/S2
GI: Soft and Nontender
Genito-urinary: No Costovertebral Tender
Musculoskeletal: No Edema
Neuro: AO x 3
Hematologic / Lymphatic: No Lymphadenopathy
Psych: Calm
Data Reviewed
-
Total Time Spent with Patient (in minutes): 42
Labs: Labs Reviewed by me
--- NOTE | 2023-06-19 10:29 | W.PN.GS2 ---
Addendum entered and electronically signed by Nickolas Fields MD 06/19/23 10:44:
I saw and examined the patient.
The Explosive Man's note was reviewed and I agree with the note.
Comment: Improving, passing stool x2, pain and nausea resolved. Exam benign. Initiate clamp trials
Original Note:
Today's Communication / Plan
-
Clamp trial of NGT
Assessment / Plan
-
Patient is a 68 yo M p/w malignant SBO secondary to metastatic pancreatic cancer with CT done as outpatient at [facility] site showing reported concern for proximal small bowel obstruction secondary to mid abdominal serosal implant, unchanged pancreatic
mass and hepatic metastases, increased ascites and bilateral pleural effusions. (CD unavailable)
Considering surgery for palliative bypass vs option of palliative PEG or J-tube, however, limitations of PEG as a relates to decompression and inability to use for enteral access as well as limitations of J-tube for decompressing obstruction were
reviewed. He is at increased risk for operative complications both immediately on long-term.
Improvement with NGT decompression and bowel rest.
-- Will plan clamp trial of NGT and diet advancement to clears if successful.
-- Repeat CT with PO and IV contrast if symptoms return/worsen
-- Consider TPN for medical optimization if diet unable to be advanced
-- Oncology consult noted
-- Rec Palliative care consult
Subjective Data
-
Date of Service: June 19, 2023
Patient seen and examined at bedside with Dr. Fields. Denies n/v. Denies abdominal pain. Has passed several loose stools/flatus with significant relief in symptoms.
Objective Data
-
Intake and Output
06/18/23 06/19/23 06/20/23
06:59 06:59 06:59
Intake Total 860 / 860
Output Total 250 / 250 725 / 725
Balance -250 / -250 135 / 135
Intake:
IV piggybacks 270 / 270
Amount instilled into GI Tube ( 90 / 90
Total)
[place] Sump 90 / 90
Blood Product Amount Infused ( 500 / 500
mL)
Packed Rbc Leukoreduced Unit 250 / 250
[id number]
Packed Rbc Leukoreduced Unit 250 / 250
[id number]
Output:
Gastrointestinal tube output ( 100 / 100
Total)
[place] Sump 100 / 100
Urine, Voided 250 / 250 625 / 625
Vital Signs
Temp Pulse Resp BP Pulse Ox
98.3 F 68 16 146/82 95
06/19/23 07:16 06/19/23 06:00 06/19/23 06:00 06/19/23 06:00 06/19/23 06:00
Lab Results
06/19/23 04:02
06/19/23 04:02
Calcium 8.0 mg/dl (8.4-10.2) L 06/19/23 04:02
Phosphorus 3.1 mg/dl (2.5-4.5) 06/18/23 14:48
Magnesium 2.1 mg/dl (1.6-2.3) 06/18/23 14:48
Total Bilirubin 1.6 mg/dl (0.2-1.3) H 06/19/23 04:02
AST 24 U/L (17-59) 06/19/23 04:02
ALT 14 U/L (0-50) 06/19/23 04:02
Alkaline Phosphatase 72 U/L (38-126) 06/19/23 04:02
Total Protein 4.0 g/dl (6.3-8.2) L D 06/19/23 04:02
Albumin 2.2 g/dl (3.5-5.0) L 06/19/23 04:02
Physical Exam
-
NAD, ox3
ABD soft, NT, ND
[2023-06-19] MEDS: APRESOLINE 5 MG IV (12:30)
--- NOTE | 2023-06-19 12:41 | W.PN.ONC2 ---
Today's Communication / Plan
-
Continue supportive care, slowly improving.
Impression
Impression
Pancytopenia post Gemzar and Abraxane
SBO likely secondary to progressive disease
Left lower lobe infiltrate/atelectasis symptomatic
Anemia hemoglobin 6.5 g/dL following hydration
Plan
Plan
Patient appears to have progressed on 2 lines of standard of care therapy current progression may be related to decreased density
Transfuse hemoglobin < 7.0 g/dl platelets <20 K
Continue supportive measures
Previously refused to clinical trial
Welcome to transition his oncology care to [place] but sounds like planning to return to [facility]
Subjective/Objective
Chief Complaint
Heme/Onc follow up of panc ca, chemo-related cytopenias
Subjective
Pain controlled, states he has never required pain meds during the day, only at night. Still with NGT in, clamped, denies nausea. Plt 43K today, denies bleeding.
Vital Signs:
Vital Signs
Temp Pulse Resp BP Pulse Ox
98.4 F 71 12 163/91 96
06/19/23 11:15 06/19/23 10:47 06/19/23 10:06 06/19/23 12:30 06/19/23 10:47
Lab Results:
Laboratory Data
WBC 3.8 10^3/uL (4.8-10.8) L 06/19/23 04:02
Hgb 8.2 g/dL (13.0-18.0) L D 06/19/23 04:02
Plt Count 43 10^3/uL (130-400) L 06/19/23 04:02
PT 15.8 Sec (11.4-14.6) H 06/17/23 19:07
INR 1.25 06/17/23 19:07
APTT 34.7 Sec (23.4-35.0) 06/17/23 19:07
eGFR > 60.00 06/19/23 04:02
Physical Exam
Awake, alert, non-toxic appearing
NGT in place
Review of Systems
Review of Systems
Constitutional: Reports Fatigue; Denies Fever
Head: Denies Sore Throat or Hearing Loss
Respiratory: Denies Dyspnea or Cough
Cardiovascular: Denies Chest Pain or Palpitations
Gastrointestinal: Denies Nausea/Vomiting or Diarrhea
Genitourinary: Denies Hematuria
Skin: Denies Rash or Pruritis
Neurological: Denies Headache or Numbness
Hem/Lymphatic: Reports Easy Bruising; Denies Night Sweats
--- NOTE | 2023-06-19 13:01 | PTCARENOTE ---
Patient's NGT tube was clamped by this morning approx 0900. So far patient denies any nausea or abdominal pain. He has been up walking around room, back and forth to the bathroom and in the hallway with PT. He has no complaints at this
time. Assessment, care and VS as charted.
--- NOTE | 2023-06-19 16:29 | CM ---
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 Room air. NPO/NGT. NG clamp trial. PT/OT Evals; no needs.
Spoke with [facility]; they ARE able to accept the patient without PCP. They are aware that the patient is not ready for d/c.
CM continuing to follow for d/c needs.
Plan home with [facility].
--- NOTE | 2023-06-19 17:28 | PTCARENOTE ---
NGT had 0 residual. Pt declined any nausea or abdominal pain. NGT tube removed, pt tolerated. Clear liquid diet ordered.
[2023-06-20] VITALS (8 sets, daily range): BP systolic 134–175; BP diastolic 75–95; BMI 22.0
[2023-06-20] MEDS: D5LR 1000 IV ×3 (01:30→21:08)
[2023-06-20 04:02] LABS: % Basophils 0.1 % (0-2); % Immature Granulocytes 0.9 % (0-0.5); % Monocytes 14.7 % (1.7-9.3); % Neutrophils 77.3 % (42.2-75.2); Absolute Eosinophils 0.1 10^3/uL (0-0.7); Absolute Immature Granulocytes 0.1 10^3/uL (0-0.05); Absolute Lymphocytes 0.4 10^3/uL (1.2-3.4); Absolute Neutrophils 5.3 10^3/uL (1.4-6.5); Hematocrit 27.3 % (39.0-52.0); Hemoglobin 9.1 g/dL (13.0-18.0); Mean Corp Hgb Conc. 33.3 g/dL (33.0-37.0); Mean Corpuscular Hgb 31.4 pg (27.0-31.0); Mean Corpuscular Volume 94.1 fL (80.0-94.0); Mean Platelet Volume 10.9 fL (7.4-10.4); Nucleated Red Blood Cells % 0.3 % (-); Platelet Count 62 10^3/uL (130-400); Red Cell Dist. Width 17.2 % (11.5-14.5); White Blood Cell Count 6.8 10^3/uL (4.8-10.8)
[2023-06-20 04:29] LABS: ALT (SGPT) 15 U/L (0-50); AST (SGOT) 27 U/L (17-59); Albumin 2.4 g/dl (3.5-5.0); Alkaline Phosphatase 84 U/L (38-126); Blood Urea Nitrogen 16 mg/dl (9-20); Calcium 8.1 mg/dl (8.4-10.2); Carbon Dioxide 26 mmol/L (22-30); Chloride 105 mmol/L (98-107); Estimated Creatinine Clearance 74 ml/min; Glucose 104 mg/dl (70-99); Potassium 3.3 mmol/L (3.5-5.1); Sodium 136 mmol/L (135-145); Total Bilirubin 1.5 mg/dl (0.2-1.3); Total Protein 4.4 g/dl (6.3-8.2); eGFR > 60.00
--- NOTE | 2023-06-20 04:58 | PTCARENOTE ---
k 3.3 - distribution analyst gave order for rider due to gi issues- see mar. pt did tolerate clear liquids all shift
[2023-06-20] MEDS: KCL 270 MEQ IV (06:09)
[2023-06-20] MEDS: PROTONIX IV 40 MG IV (08:27)
[2023-06-20] MEDS: NSS (PRESERVATIVE FREE) 10 ML IV (08:28)
[2023-06-20] MEDS: HYDROPHOR 1 APPLIC TOPICAL (08:30)
--- NOTE | 2023-06-20 13:28 | W.PN.HOSP.TC ---
Today's Communication/Plan
-
clears; diet per GS
ambulate
pain control
monitor counts
Assessment / Plan
Assessment / Plan
Assessment:
Partial SBO vs chemo enteritis
- Patient notes that he continues to have occasional loose/liquid stools.
- NGT removed
- on clears; ADAT as per GS
- pain control, anti-emetics
stage IV pancreatic cancer with known mets to the liver, abdominal cavity lung, and pelvis
- receiving oncologic care through [facility] in [facility]. Previously on FOLFIRINOX modified to FOLFIRI=>PD=>Gemcitabine and Abraxane. prior XRT 2021.
- Continue supportive care including pain control, etc.
- Onc following
Pancytopenia
- Likely secondary to chemotherapy.
- Patient is not currently neutropenic.
- Hb 9.1, s/p 2 units PRBCs
- platelets 62
Benign Hypertension
- On ARB for BP and lymphedema management.
- Hold acutely and resume once able to tolerate POs.
Chronic Lymphedema
Chronic Venous Stasis Skin Changes
- LE skin changes secondary to lymphedema versus chemo.
- Wound Care eval for topical care recommendations.
Hypokalemia - replete prn
DVT Prophylaxis: SCDs
Code Status: DNR
Anticipated Discharge: > 48 hours
Subjective/Interval History
-
Date of Service: June 20, 2023
states distention improving, tolerating clears
Objective Data
-
Labs:
Laboratory Results
06/20/23
03:46
WBC 6.8
Hgb 9.1 L
Hct 27.3 L
Plt Count 62 L D
Sodium 136
Potassium 3.3 L
Chloride 105
Carbon Dioxide 26
BUN 16
Creatinine 0.9
Glucose 104 H
Calcium 8.1 L
Total Bilirubin 1.5 H
AST 27
ALT 15
Alkaline Phosphatase 84
Vital Signs:
Vital Signs
Temp Pulse Resp BP Pulse Ox
98.3 F 61 13 145/85 98
06/20/23 11:02 06/20/23 08:00 06/20/23 08:00 06/20/23 08:00 06/20/23 08:00
I&O
06/19/23 06/20/23 06/21/23
06:59 06:59 06:59
Intake Total 860 / 860 1200 / 1200
Output Total 725 / 725 300 / 300
Balance 135 / 135 900 / 900
Physical Exam
-
General: No Apparent Distress
HEENT: Normocephalic and Atraumatic
Respiratory: Negative Wheezes
Cardiac: Regular Rhythm and S1/S2
GI: Soft
Genito-urinary: No Costovertebral Tender
Neuro: AO x 3
Hematologic / Lymphatic: No Lymphadenopathy
Psych: Calm
Data Reviewed
-
Total Time Spent with Patient (in minutes): 42
Labs: Labs Reviewed by me
--- NOTE | 2023-06-20 14:07 | W.PN.GS2 ---
Addendum entered and electronically signed by Nickolas Fields MD 06/20/23 14:39:
I saw and examined the patient.
The Broadcast Field Supervisor's note was reviewed and I agree with the note.
Comment: Passed clamp trial, NGT out and clementine clears. Some mild distention with clears but denies n/v. Passing stool and flatus. Exam soft, nt, mild distention. Will start clears, plan to advance slowly.
Original Note:
Today's Communication / Plan
-
CLD with supplements
Assessment / Plan
-
Patient is a 68 yo M p/w malignant SBO secondary to metastatic pancreatic cancer with CT done as outpatient at [facility] site showing reported concern for proximal small bowel obstruction secondary to mid abdominal serosal implant, unchanged pancreatic
mass and hepatic metastases, increased ascites and bilateral pleural effusions. (CD unavailable)
Considering surgery for palliative bypass vs option of palliative PEG or J-tube, however, limitations of PEG as a relates to decompression and inability to use for enteral access as well as limitations of J-tube for decompressing obstruction were
reviewed. He is at increased risk for operative complications both immediately on long-term.
Thus far improving without surgical intervention
NGT removed on 06/18, tolerating clears without n/v but does have some bloating. Passing stools/flatus
-- Continue clear liquids with supplements today
-- Repeat CT with PO and IV contrast if symptoms return/worsen
-- Consider TPN for medical optimization if diet unable to be advanced
-- Oncology following
Subjective Data
-
Date of Service: June 20, 2023
Patient seen and examined at bedside with Dr. Fields. Passing stool and flatus. Belching has resolved. Denies n/v. Some bloating after clears but otherwise tolerating well.
Objective Data
-
Intake and Output
06/19/23 06/20/23 06/21/23
06:59 06:59 06:59
Intake Total 860 / 860 1200 / 1200
Output Total 725 / 725 300 / 300
Balance 135 / 135 900 / 900
Intake:
IV fluids (Total) 1200 / 1200
IV piggybacks 270 / 270
Amount instilled into GI Tube ( 90 / 90
Total)
[place] Sump 90 / 90
Blood Product Amount Infused ( 500 / 500
mL)
Packed Rbc Leukoreduced Unit 250 / 250
[id number]
Packed Rbc Leukoreduced Unit 250 / 250
[id number]
Output:
Gastrointestinal tube output ( 100 / 100
Total)
[place] Sump 100 / 100
Urine, Voided 625 / 625 300 / 300
Other:
Number of approximated SMALL 1
amounts of urine
Vital Signs
Temp Pulse Resp BP Pulse Ox
98.3 F 61 13 145/85 98
06/20/23 11:02 06/20/23 08:00 06/20/23 08:00 06/20/23 08:00 06/20/23 08:00
Lab Results
06/20/23 03:46
06/20/23 03:46
Calcium 8.1 mg/dl (8.4-10.2) L 06/20/23 03:46
Phosphorus 3.1 mg/dl (2.5-4.5) 06/18/23 14:48
Magnesium 2.1 mg/dl (1.6-2.3) 06/18/23 14:48
Total Bilirubin 1.5 mg/dl (0.2-1.3) H 06/20/23 03:46
AST 27 U/L (17-59) 06/20/23 03:46
ALT 15 U/L (0-50) 06/20/23 03:46
Alkaline Phosphatase 84 U/L (38-126) 06/20/23 03:46
Total Protein 4.4 g/dl (6.3-8.2) L 06/20/23 03:46
Albumin 2.4 g/dl (3.5-5.0) L 06/20/23 03:46
Physical Exam
-
NAD, ox3
ABD soft, NT, mild distention
[2023-06-21 05:36] VITALS: BMI 22.2
[2023-06-21 07:15] VITALS: BP 156/82
[2023-06-21] MEDS: D5LR 1000 IV (07:36)
[2023-06-21 08:23] LABS: % Basophils 0.3 % (0-2); % Eosinophils 1.2 % (0-6); % Lymphocytes 6.9 % (20.5-51.1); % Monocytes 15.1 % (1.7-9.3); % Neutrophils 75.5 % (42.2-75.2); Absolute Eosinophils 0.1 10^3/uL (0-0.7); Absolute Immature Granulocytes 0.1 10^3/uL (0-0.05); Absolute Lymphocytes 0.4 10^3/uL (1.2-3.4); Absolute Monocytes 0.9 10^3/uL (0.1-0.6); Absolute Neutrophils 4.4 10^3/uL (1.4-6.5); Hematocrit 26.9 % (39.0-52.0); Hemoglobin 8.7 g/dL (13.0-18.0); Mean Corp Hgb Conc. 32.3 g/dL (33.0-37.0); Mean Corpuscular Hgb 31.2 pg (27.0-31.0); Mean Corpuscular Volume 96.4 fL (80.0-94.0); Mean Platelet Volume 12.1 fL (7.4-10.4); Nucleated Red Blood Cells % 0 % (-); Platelet Count 81 10^3/uL (130-400); Red Blood Cell Count 2.79 10^6/uL (4.70-6.10); Red Cell Dist. Width 17.3 % (11.5-14.5); White Blood Cell Count 5.8 10^3/uL (4.8-10.8)
[2023-06-21] MEDS: NSS (PRESERVATIVE FREE) 10 ML IV (08:44)
[2023-06-21] MEDS: PROTONIX IV 40 MG IV (08:44)
[2023-06-21 08:45] LABS: ALT (SGPT) 13 U/L (0-50); AST (SGOT) 28 U/L (17-59); Albumin 2.2 g/dl (3.5-5.0); Alkaline Phosphatase 76 U/L (38-126); Blood Urea Nitrogen 12 mg/dl (9-20); Calcium 7.8 mg/dl (8.4-10.2); Carbon Dioxide 26 mmol/L (22-30); Chloride 109 mmol/L (98-107); Estimated Creatinine Clearance 77 ml/min; Glucose 90 mg/dl (70-99); Potassium 3.6 mmol/L (3.5-5.1); Sodium 135 mmol/L (135-145); Total Bilirubin 1.4 mg/dl (0.2-1.3); Total Protein 4.1 g/dl (6.3-8.2); eGFR > 60.00
[2023-06-21] MEDS: HYDROPHOR 1 APPLIC TOPICAL (08:46)
--- NOTE | 2023-06-21 13:03 | W.PN.GS2 ---
Today's Communication / Plan
-
Fulls
Assessment / Plan
-
Patient is a 68 yo M p/w malignant SBO secondary to metastatic pancreatic cancer with CT done as outpatient at [facility] site showing reported concern for proximal small bowel obstruction secondary to mid abdominal serosal implant, unchanged pancreatic
mass and hepatic metastases, increased ascites and bilateral pleural effusions. (CD unavailable)
Considering surgery for palliative bypass vs option of palliative PEG or J-tube, however, limitations of PEG as a relates to decompression and inability to use for enteral access as well as limitations of J-tube for decompressing obstruction were
reviewed. He is at increased risk for operative complications both immediately on long-term.
Thus far improving without surgical intervention
NGT removed on 06/18, tolerating clears without n/v but does have some bloating. Passing stools/flatus
We discussed that in some cases patients will tolerate liquids but not solids, we will advance slowly for this reason, he is happy to have some cream of wheat
-- Adv to fulls with supplements
-- Monitor for diet tolerance
-- Oncology following
-- Will follow
Subjective Data
-
Date of Service: June 21, 2023
AFVSS, continues passing stool and flatus, some formed stool today, denies n/v, clementine clears
Objective Data
-
Intake and Output
06/20/23 06/21/23 06/22/23
06:59 06:59 06:59
Intake Total 1200 / 1200 2540 / 2540 380 / 380
Output Total 300 / 300
Balance 900 / 900 2540 / 2540 380 / 380
Intake:
Oral fluids 1740 / 1740 380 / 380
IV fluids (Total) 1200 / 1200 800 / 800
Output:
Urine, Voided 300 / 300
Other:
Number of approximated SMALL 1
amounts of urine
Number of approximated MODERATE 3 1
amounts of urine
Number of approximated LARGE 2
amounts of urine
Vital Signs
Temp Pulse Resp BP Pulse Ox
97.2 F 67 20 156/82 95
06/21/23 07:15 06/21/23 07:15 06/21/23 07:15 06/21/23 07:15 06/21/23 10:30
Lab Results
06/21/23 07:59
06/21/23 07:59
Calcium 7.8 mg/dl (8.4-10.2) L 06/21/23 07:59
Phosphorus 3.1 mg/dl (2.5-4.5) 06/18/23 14:48
Magnesium 2.1 mg/dl (1.6-2.3) 06/18/23 14:48
Total Bilirubin 1.4 mg/dl (0.2-1.3) H 06/21/23 07:59
AST 28 U/L (17-59) 06/21/23 07:59
ALT 13 U/L (0-50) 06/21/23 07:59
Alkaline Phosphatase 76 U/L (38-126) 06/21/23 07:59
Total Protein 4.1 g/dl (6.3-8.2) L 06/21/23 07:59
Albumin 2.2 g/dl (3.5-5.0) L 06/21/23 07:59
Physical Exam
-
Gen: NAD
Abd: soft, nt, very mild distention improved from yesterday
--- NOTE | 2023-06-21 13:29 | W.PN.HOSP.TC ---
Today's Communication/Plan
-
fulls - ADAT per GS
resume ARB
Assessment / Plan
Assessment / Plan
Assessment:
Partial SBO vs chemo enteritis
- s/p NGT
- on fulls with supplements; ADAT as per GS
- pain control, anti-emetics
stage IV pancreatic cancer with known mets to the liver, abdominal cavity lung, and pelvis
- receiving oncologic care through [facility] in [facility]. Previously on FOLFIRINOX modified to FOLFIRI=>PD=>Gemcitabine and Abraxane. prior XRT 2021.
- Continue supportive care including pain control, etc.
- Onc following
Pancytopenia
- Likely secondary to chemotherapy.
- Patient is not currently neutropenic.
- Hb 8.7, s/p 2 units PRBCs
- platelets 81
Benign Hypertension
- continue ARB
Chronic Lymphedema
Chronic Venous Stasis Skin Changes
- LE skin changes secondary to lymphedema versus chemo.
- Wound Care eval for topical care recommendations.
Hypokalemia - replete prn
DVT Prophylaxis: SCDs
Code Status: DNR
Anticipated Discharge: 24 - 48 hours
Subjective/Interval History
-
Date of Service: June 21, 2023
some formed stools today
mildred clears
no n/v
Objective Data
-
Labs:
Laboratory Results
06/21/23
07:59
WBC 5.8
Hgb 8.7 L
Hct 26.9 L
Plt Count 81 L D
Sodium 135
Potassium 3.6
Chloride 109 H
Carbon Dioxide 26
BUN 12
Creatinine 0.9
Glucose 90
Calcium 7.8 L
Total Bilirubin 1.4 H
AST 28
ALT 13
Alkaline Phosphatase 76
Vital Signs:
Vital Signs
Temp Pulse Resp BP Pulse Ox
97.2 F 67 20 156/82 95
06/21/23 07:15 06/21/23 07:15 06/21/23 07:15 06/21/23 07:15 06/21/23 10:30
I&O
06/20/23 06/21/23 06/22/23
06:59 06:59 06:59
Intake Total 1200 / 1200 2540 / 2540 380 / 380
Output Total 300 / 300
Balance 900 / 900 2540 / 2540 380 / 380
Physical Exam
-
General: No Apparent Distress
HEENT: Normocephalic and Atraumatic
Cardiac: Regular Rhythm and S1/S2
GI: Soft
Genito-urinary: No Costovertebral Tender
Neuro: AO x 3
Psych: Calm
Data Reviewed
-
Total Time Spent with Patient (in minutes): 41
Labs: Labs Reviewed by me
[2023-06-21] MEDS: DIOVAN 160 MG PO (15:36)
[2023-06-21 15:40] VITALS: BP 159/80
[2023-06-21] MEDS: ZENPEP DELAYED RELEASE CAPSULE 3 CAPSULE PO (18:10)
[2023-06-21] MEDS: ZOFRAN 4 MG IV (20:47)
[2023-06-21 23:35] VITALS: BP 154/95
--- NOTE | 2023-06-22 01:35 | PTCARENOTE ---
Patient reported feeling nauseous and increased abdominal pain. Administered PRN Zofran 4mg IV. About an hour later, patient had episode of 275ml emesis. Stated he felt relief after vomiting but was unsure if it would happen again. Patient has been
resting comfortably since, no further complains.
[2023-06-22 06:00] VITALS: BMI 22.2
[2023-06-22 07:08] VITALS: BP 140/96
[2023-06-22 07:55] LABS: % Basophils 0.3 % (0-2); % Eosinophils 0.5 % (0-6); % Immature Granulocytes 0.7 % (0-0.5); % Lymphocytes 3.9 % (20.5-51.1); % Monocytes 11.3 % (1.7-9.3); % Neutrophils 83.3 % (42.2-75.2); Absolute Eosinophils 0.1 10^3/uL (0-0.7); Absolute Immature Granulocytes 0.1 10^3/uL (0-0.05); Absolute Lymphocytes 0.4 10^3/uL (1.2-3.4); Absolute Monocytes 1.1 10^3/uL (0.1-0.6); Absolute Neutrophils 8.1 10^3/uL (1.4-6.5); Hematocrit 27.7 % (39.0-52.0); Hemoglobin 9.6 g/dL (13.0-18.0); Mean Corp Hgb Conc. 34.7 g/dL (33.0-37.0); Mean Corpuscular Hgb 32.4 pg (27.0-31.0); Mean Corpuscular Volume 93.6 fL (80.0-94.0); Mean Platelet Volume 11.2 fL (7.4-10.4); Nucleated Red Blood Cells % 0 % (-); Platelet Count 123 10^3/uL (130-400); Red Blood Cell Count 2.96 10^6/uL (4.70-6.10); Red Cell Dist. Width 18.1 % (11.5-14.5); White Blood Cell Count 9.7 10^3/uL (4.8-10.8)
[2023-06-22] MEDS: PROTONIX IV 40 MG IV (08:18)
[2023-06-22] MEDS: NSS (PRESERVATIVE FREE) 10 ML IV (08:18)
[2023-06-22] MEDS: DIOVAN 160 MG PO (08:18)
[2023-06-22] MEDS: ZENPEP DELAYED RELEASE CAPSULE 3 CAPSULE PO (08:21)
[2023-06-22] MEDS: HYDROPHOR 1 APPLIC TOPICAL (08:23)
[2023-06-22 08:27] LABS: ALT (SGPT) 15 U/L (0-50); AST (SGOT) 30 U/L (17-59); Albumin 2.8 g/dl (3.5-5.0); Alkaline Phosphatase 90 U/L (38-126); Blood Urea Nitrogen 12 mg/dl (9-20); Carbon Dioxide 23 mmol/L (22-30); Chloride 106 mmol/L (98-107); Estimated Creatinine Clearance 69 ml/min; Glucose 93 mg/dl (70-99); Potassium 3.9 mmol/L (3.5-5.1); Sodium 133 mmol/L (135-145); Total Bilirubin 1.7 mg/dl (0.2-1.3); Total Protein 4.8 g/dl (6.3-8.2); eGFR > 60.00
--- NOTE | 2023-06-22 09:08 | W.PN.HOSP.TC ---
Today's Communication/Plan
-
CT scan of abd
follow labs
consideration for TPN, as per surgery
continue Ensure supplement
Assessment / Plan
Assessment / Plan
Assessment:
Partial SBO vs chemo enteritis
- s/p NGT
- on fulls with supplements; ADAT as per GS
- pain control, anti-emetics
discussed with surgery, will order CT scan of abd. Discussed with pt potential need for surgical intervention based on CT scan, he relates that he is not ready to give up yet and would favor surgery if this is what is recommended
stage IV pancreatic cancer with known mets to the liver, abdominal cavity lung, and pelvis
- receiving oncologic care through [facility] in [facility]. Previously on FOLFIRINOX modified to FOLFIRI=>PD=>Gemcitabine and Abraxane. prior XRT 2021.
- Continue supportive care including pain control, etc.
- Onc following
Pancytopenia
- Likely secondary to chemotherapy.
- Patient is not currently neutropenic.
- Hb 6.5--> 8.7, s/p 2 units PRBCs-->9.6
- platelets 81-->123k
Benign Hypertension
- continue ARB, currently 140/96, will follow
Cachexia
Alb 2.8
Chronic Lymphedema
Chronic Venous Stasis Skin Changes
- LE skin changes secondary to lymphedema versus chemo.
- Wound Care eval for topical care recommendations.
Hypokalemia - resolved
K 3.9
DVT Prophylaxis: SCDs
Code Status: DNR
Anticipated Discharge: > 48 hours
Subjective/Interval History
-
Date of Service: June 22, 2023
Passing small amounts of liquidy stool, tolerating full liquid diet
Objective Data
-
Labs:
Laboratory Results
06/22/23
07:43
WBC 9.7
Hgb 9.6 L
Hct 27.7 L
Plt Count 123 L D
Sodium 133 L
Potassium 3.9
Chloride 106
Carbon Dioxide 23
BUN 12
Creatinine 1.0
Glucose 93
Calcium 8.0 L
Total Bilirubin 1.7 H
AST 30
ALT 15
Alkaline Phosphatase 90
Vital Signs:
Vital Signs
Temp Pulse Resp BP Pulse Ox
98.0 F 96 18 140/96 96
06/22/23 07:08 06/22/23 08:18 06/22/23 07:08 06/22/23 08:18 06/22/23 07:08
I&O
06/21/23 06/22/23 06/23/23
06:59 06:59 06:59
Intake Total 2540 / 2540 3740 / 3740
Output Total 275 / 275
Balance 2540 / 2540 3465 / 3465
Review of Systems
-
History Source: Patient and Physician (discussed with Dr. Cabello)
Constitutional: Denies Fever
EENT: Reports No Symptoms Reported
Respiratory: Reports No Symptoms
Cardiac: Reports No Symptoms
Abdomen/GI: Reports Abdominal Pain (mild)
Musculoskeletal: Reports No Symptoms
Neuro: Reports No Symptoms
Physical Exam
-
General: Well Developed, Appears Chronically Ill and Cachectic
HEENT: Atraumatic, Moist Mucous Membranes and Other (temporal muscle wasting)
Respiratory: Clear to Auscultation (mild splinting); Negative Wheezes, Rales or Rhonchi
Cardiac: Regular Rhythm and S1/S2
GI: Soft, Normal Bowel Sounds, Tender and Distended
Musculoskeletal: No Clubbing, No Cyanosis and No Edema
Neuro: Awake, Alert and Oriented
--- NOTE | 2023-06-22 09:10 | W.PN.GS2 ---
Today's Communication / Plan
-
Repeat CT abdomen pelvis with p.o. and IV contrast today.
Assessment / Plan
-
Patient is a 68 yo M p/w malignant SBO secondary to metastatic pancreatic cancer with CT done as outpatient at [facility] site showing reported concern for proximal small bowel obstruction secondary to mid abdominal serosal implant, unchanged pancreatic
mass and hepatic metastases, increased ascites and bilateral pleural effusions. (imaging unavailable). Initially did well with nonoperative management however had an episode of emesis last evening.
Will plan for CT scan abdomen pelvis with p.o./IV contrast.
Discussed possible surgical options such as palliative bypass pending CT findings. Patient amenable to any procedure that could improve his quality of life.
-- NPO, IV fluids. Did discuss starting TPN pending CT findings.
-- Oncology following
-- We will continue to follow
Time Spent
Total Time Spent with Patient (in minutes): 20
Subjective Data
-
Date of Service: June 22, 2023
Interval Events:
No acute events overnight. Slept well. Pain Controlled. Nonbloody, nonbilious emesis.
Objective Data
-
Intake and Output
06/21/23 06/22/23 06/23/23
06:59 06:59 06:59
Intake Total 2540 / 2540 3740 / 3740
Output Total 275 / 275
Balance 2540 / 2540 3465 / 3465
Intake:
Oral fluids 1740 / 1740 1940 / 1940
IV fluids (Total) 800 / 800 1800 / 1800
Output:
Emesis 275 / 275
Other:
Number of approximated SMALL 1
amounts of urine
Number of approximated MODERATE 3 1
amounts of urine
Number of approximated LARGE 2
amounts of urine
Vital Signs
Temp Pulse Resp BP Pulse Ox
98.0 F 96 18 140/96 96
04/01/24 07:08 06/22/23 08:18 06/22/23 07:08 06/22/23 08:18 06/22/23 07:08
Lab Results
06/22/23 07:43
06/22/23 07:43
Calcium 8.0 mg/dl (8.4-10.2) L 06/22/23 07:43
Phosphorus 3.1 mg/dl (2.5-4.5) 06/18/23 14:48
Magnesium 2.1 mg/dl (1.6-2.3) 06/18/23 14:48
Total Bilirubin 1.7 mg/dl (0.2-1.3) H 06/22/23 07:43
AST 30 U/L (17-59) 06/22/23 07:43
ALT 15 U/L (0-50) 06/22/23 07:43
Alkaline Phosphatase 90 U/L (38-126) 06/22/23 07:43
Total Protein 4.8 g/dl (6.3-8.2) L 06/22/23 07:43
Albumin 2.8 g/dl (3.5-5.0) L 06/22/23 07:43
Physical Exam
-
GENERAL/NEURO: Awake, Alert, no distress
CHEST: Unlabored breathing on RA
ABDOMEN: Soft, mildly tender to palpation, distended.
[2023-06-22] MEDS: OMNIPAQUE 50 ML PO (09:21)
[2023-06-22] MEDS: ZENPEP DELAYED RELEASE CAPSULE PO ×2 (11:35→17:37)
--- NOTE | 2023-06-22 14:14 | CM ---
Reviewed the chart notes. Per notes, NPO, IV fluids. Possibel TPN pending CT findings. CM continues to be available to patient/family and is monitoring medical plan for needs at discharge.
Plan: Discharge plans are home with Chanelle COLÓN when medically stable.
--- NOTE | 2023-06-22 14:17 | W.PN.ONC2 ---
Today's Communication / Plan
-
Obtain office notes from Dr. Debbie Antony at [facility], determine options for next line of therapy
It would be helpful to get a sense of big picture before starting him on TPN potentially without end-point
Impression
Impression
Pancytopenia post Gemzar and Abraxane
SBO likely secondary to progressive disease (pt has been on gem/abraxane for about a year now)
Left lower lobe infiltrate/atelectasis symptomatic
Anemia hemoglobin 6.5 g/dL following hydration
Plan
Plan
Patient appears to have progressed on 2 lines of standard of care therapy
Obtain office notes from Dr. Debbie Antony at [facility], determine options for next line of therapy
Transfuse hemoglobin < 7.0 g/dl platelets <20 K
Continue supportive measures
Welcome to transition his oncology care to [place]
Subjective/Objective
Chief Complaint
Heme/Onc follow up of met pancreatic cancer complicated by bowel obstruction
Subjective
Recent events noted: had been doing better, tolerated clears, but after full liquids yesterday he had nausea and vomiting. Underwent repeat CT A/P today. No nausea or vomiting currently but has not eaten
Vital Signs:
Vital Signs
Temp Pulse Resp BP Pulse Ox
98.0 F 96 18 140/96 96
06/22/23 07:08 06/22/23 08:18 06/22/23 07:08 06/22/23 08:18 06/22/23 09:30
Lab Results:
Laboratory Data
WBC 9.7 10^3/uL (4.8-10.8) 06/22/23 07:43
Hgb 9.6 g/dL (13.0-18.0) L 06/22/23 07:43
Plt Count 123 10^3/uL (130-400) L D 06/22/23 07:43
PT 15.8 Sec (11.4-14.6) H 06/17/23 19:07
INR 1.25 06/17/23 19:07
APTT 34.7 Sec (23.4-35.0) 06/17/23 19:07
eGFR > 60.00 06/22/23 07:43
Physical Exam
HEENT: Moist Mucous Membranes; No Jaundice
Cardiology: Normal Sinus Rhythm, S1 and S2
Pulmonary: Clear; No Wheezes or Rales
GI: Soft, Normal Bowel Sounds and Distended
Extremities: No C/C/E
Neuro: Non Focal
Review of Systems
Review of Systems
Constitutional: Reports Fatigue; Denies Fever
Head: Denies Sore Throat or Hearing Loss
Respiratory: Denies Dyspnea or Cough
Cardiovascular: Denies Chest Pain or Palpitations
Gastrointestinal: Reports Nausea/Vomiting; Denies Diarrhea
Genitourinary: Denies Hematuria
Skin: Denies Rash or Pruritis
Neurological: Denies Headache or Numbness
Psychiatric: Denies Depression or Insomnia
Orders
Orders
Orders From Last 24 Hours
06/22/23 14:15
Obtain Records As Directed
[2023-06-22 15:05] VITALS: BP 155/95; PULSE 87
--- NOTE | 2023-06-22 15:15 | PTOTSP ---
Pt is no longer limited by being connected to lines or wires or tubes and is able to ambulate independently without need for any assistive devices. Anticipate pt returning home with no PT needs. Reconsult if his status declines.
[2023-06-22 15:20] VITALS: BP 155/91
[2023-06-22] MEDS: D5LR 1000 IV (21:06)
--- NOTE | 2023-06-22 21:19 | W.PN.UPDATE ---
Update Note
Progress Note Update
Brief GS Note:
CT scan reviewed with patient. Bilateral Pleural effusions. Ascites (likely, malignant) noted in the abdomen. mid small bowel transition point concerning for a malignant pSBO. distal stomach is thickened and there are significant vascular
collaterals in the area. Given these findings, I do not think a palliative GJ will provide much additional QoL. We did discuss placement of a venting PEG which he is amenable to. He will still be able to take clears and fulls as able but will be
able to vent his stomach intermittently for comfort.
ok for clears, NPO @MN. resume IVFs
GI c/s for vPEG placement tomorrow.
All questions answered.
[2023-06-22 23:56] VITALS: BP 135/86
[2023-06-23 06:33] LABS: % Basophils 0.3 % (0-2); % Eosinophils 1.5 % (0-6); % Immature Granulocytes 0.7 % (0-0.5); % Lymphocytes 4.9 % (20.5-51.1); % Neutrophils 76.6 % (42.2-75.2); Absolute Eosinophils 0.1 10^3/uL (0-0.7); Absolute Immature Granulocytes 0.1 10^3/uL (0-0.05); Absolute Lymphocytes 0.4 10^3/uL (1.2-3.4); Absolute Monocytes 1.2 10^3/uL (0.1-0.6); Absolute Neutrophils 5.8 10^3/uL (1.4-6.5); Hemoglobin 8.2 g/dL (13.0-18.0); Mean Corp Hgb Conc. 34.2 g/dL (33.0-37.0); Mean Corpuscular Hgb 32.4 pg (27.0-31.0); Mean Corpuscular Volume 94.9 fL (80.0-94.0); Mean Platelet Volume 11.4 fL (7.4-10.4); Nucleated Red Blood Cells % 0 % (-); Platelet Count 144 10^3/uL (130-400); Red Blood Cell Count 2.53 10^6/uL (4.70-6.10); Red Cell Dist. Width 18.2 % (11.5-14.5); White Blood Cell Count 7.6 10^3/uL (4.8-10.8)
[2023-06-23 06:55] LABS: ALT (SGPT) 11 U/L (0-50); AST (SGOT) 23 U/L (17-59); Albumin 2.1 g/dl (3.5-5.0); Alkaline Phosphatase 75 U/L (38-126); Blood Urea Nitrogen 15 mg/dl (9-20); Calcium 7.7 mg/dl (8.4-10.2); Carbon Dioxide 25 mmol/L (22-30); Chloride 108 mmol/L (98-107); Estimated Creatinine Clearance 63 ml/min; Glucose 82 mg/dl (70-99); Potassium 3.6 mmol/L (3.5-5.1); Sodium 133 mmol/L (135-145); Total Protein 3.9 g/dl (6.3-8.2); eGFR > 60.00
[2023-06-23] MEDS: D5LR 1000 IV ×2 (06:59→17:59)
[2023-06-23 07:58] VITALS: BP 132/90; BP 143/92; BP 148/83; PULSE 69
[2023-06-23 08:00] VITALS: BP 148/83
--- NOTE | 2023-06-23 09:30 | PTCARENOTE ---
Assumed care of patient at 0930 after receiving report from Moon Cotton RN.
[2023-06-23] MEDS: ZENPEP DELAYED RELEASE CAPSULE PO ×3 (09:44→18:00)
[2023-06-23] MEDS: NSS (PRESERVATIVE FREE) 10 ML IV (09:45)
[2023-06-23] MEDS: PROTONIX IV 40 MG IV (09:47)
[2023-06-23] MEDS: DIOVAN 160 MG PO (09:47)
[2023-06-23] MEDS: HYDROPHOR 1 APPLIC TOPICAL (09:53)
--- NOTE | 2023-06-23 10:28 | W.PN.HOSP.TC ---
Today's Communication/Plan
-
follow labs, await decision on possible venting, pt may want further input from oncologist at [facility]
Assessment / Plan
Assessment / Plan
Assessment:
Partial SBO vs chemo enteritis
- s/p NGT
- on fulls with supplements; ADAT as per GS
- pain control, anti-emetics
discussed with surgery - Dr. Merchant,
CT scan of abd: Moderate volume ascites.
Small bilateral pleural effusions and mild pericardial thickening.
Overall atrophic pancreas. Soft tissue prominence of pancreatic body which could represent the patient's primary malignancy.
1.7 cm slightly low attenuation right lobe hepatic lesion SUSPICIOUS FOR SOLID MASS/MALIGNANCY. Approximate 3 cm simple appearing hepatic cyst. Additional subcentimeter low-attenuation hepatic lesions too small to characterize.
Proximal small bowel dilatation with somewhat smooth transition in the left abdomen. Cannot exclude small metastatic implant lesion with resultant mild partial small bowel obstruction.
Cannot exclude some gastric wall thickening which may be reactive secondary to ascites or represent implant process.
Distal colonic diverticulosis.
Small bilateral nonobstructing renal calculi.
Discussed with pt potential need for surgical intervention based on CT scan, he relates that he is not ready to give up yet and would favor surgery if this is what is recommended. Surgery will be by later to discuss with pt various options
stage IV pancreatic cancer with known mets to the liver, abdominal cavity lung, and pelvis
- receiving oncologic care through [facility] in [facility]. Previously on FOLFIRINOX modified to FOLFIRI=>PD=>Gemcitabine and Abraxane. prior XRT 2021.
- Continue supportive care including pain control, etc.
- Onc following
Pancytopenia
plt better, WBC better
- Likely secondary to chemotherapy.
- Patient is not currently neutropenic.
- Hb 6.5--> 8.7, s/p 2 units PRBCs-->9.6-->8.2
- platelets 81-->123-->144k
Benign Hypertension
- continue ARB, currently 140/96, will follow
mild Cachexia
Alb 2.8
temporal muscle wasting
Pt states wt down 35 lbs since diagnosed with the cancer
Chronic Lymphedema
Chronic Venous Stasis Skin Changes
- LE skin changes secondary to lymphedema versus chemo.
- Wound Care eval for topical care recommendations.
Hypokalemia - resolved
K 3.9
DVT Prophylaxis: SCDs
Code Status: DNR
Anticipated Discharge: > 48 hours
Subjective/Interval History
-
Date of Service: June 23, 2023
Awake, alert, conversant
Objective Data
-
Labs:
Laboratory Results
06/23/23 06/23/23
06:07 06:08
WBC 7.6
Hgb 8.2 L
Hct 24.0 L
Plt Count 144
Sodium 133 L
Potassium 3.6
Chloride 108 H
Carbon Dioxide 25
BUN 15
Creatinine 1.1
Glucose 82
Calcium 7.7 L
Total Bilirubin 1.0
AST 23
ALT 11
Alkaline Phosphatase 75
Vital Signs:
Vital Signs
Temp Pulse Resp BP Pulse Ox
98.4 F 67 12 134/82 97
06/23/23 08:00 06/23/23 09:47 06/23/23 08:00 06/23/23 09:47 06/23/23 08:00
I&O
06/22/23 06/23/23 06/24/23
06:59 06:59 06:59
Intake Total 3740 / 3740 2260 / 2260
Output Total 275 / 275
Balance 3465 / 3465 2260 / 2260
Review of Systems
-
History Source: Patient and Physician (discussed with Dr. Cabello)
Constitutional: Denies Fever
EENT: Reports No Symptoms Reported
Respiratory: Reports No Symptoms
Cardiac: Reports No Symptoms
Abdomen/GI: Reports Abdominal Pain (mild)
Musculoskeletal: Reports No Symptoms
Neuro: Reports No Symptoms
Physical Exam
-
General: Well Developed, Appears Chronically Ill and Cachectic
HEENT: Atraumatic, Moist Mucous Membranes and Other (temporal muscle wasting)
Respiratory: Clear to Auscultation (mild splinting); Negative Wheezes, Rales or Rhonchi
Cardiac: Regular Rhythm and S1/S2
GI: Soft, Normal Bowel Sounds, Tender and Distended
Musculoskeletal: No Clubbing, No Cyanosis and No Edema
Neuro: Awake, Alert and Oriented
--- NOTE | 2023-06-23 11:17 | W.PN.GS2 ---
Today's Communication / Plan
-
-- NPO, will initiate TPN
-- Diagnostic laparoscopy, possible lap assisted gastrointestinal bypass, possible lap assisted venting G-tube
Assessment / Plan
-
Patient is a 68 yo M p/w malignant SBO secondary to metastatic pancreatic cancer with CT done as outpatient at [facility] site showing reported concern for proximal small bowel obstruction secondary to mid abdominal serosal implant, unchanged pancreatic
mass and hepatic metastases, increased ascites and bilateral pleural effusions. (imaging unavailable). Initially did well with nonoperative management however had an episode of emesis last evening.
Repeat CT Abdomen/Pelvis (06/23/2023): moderate ascites, know pancreas cancer with 1.7 cm and other small < 1 cm mets to liver, small bowel obstruction secondary to implant within the LUQ at the level of the distal jejunum versus proximal ileum,
decompressed distally, gastric wall thickening, small distal rectal mass.
Lengthy discussion with Mr. Carter regarding his options. Specifically we discussed the followin) no intervention with discharge on hospice and limited oral intake to liquids and pur�ed foods as tolerated, 2) discharge to hospice with the above
and TPN, 3) J-tube placement, 4) venting endoscopic G-tube placement (PEG), and 5) surgical option of diagnostic laparoscopy, possible gastrointestinal bypass, possible laparoscopic assisted venting G-tube. The utility, pros and cons of the above
was discussed in detail. Discharge on hospice with TPN is likely to be futile as this will not address his obstruction and is an unnecessary intervention. Surgical J-tube would likely have poor nutritional absorption with distal placement,
diarrhea, and inability to address obstruction. Endoscopic G-tube carries increased risk for leak with abdominal ascites.
Reasonable plans include option 1 and 5 above. We discussed that surgical exploration with possible bypass and G-tube management carries the most potential benefits, but has the most potential risks. Risks include inability to perform a intestinal
bypass depending on tethering and disease burden of the small bowel distally, as well as potential involvement of the stomach. He is also at increased risk for anastomotic leak both from either a bypass or surgical G-tube placement. These
complications would result in a more rapid progression to . We also discussed the possibility of recurrent obstruction. Option for hospice care carries the lowest upfront risks but will result in a slow and steady unwinding as he has
experienced over the last few months.
Patient would like to proceed with diagnostic laparoscopy with potential laparoscopic G-tube placement versus gastrointestinal bypass pending operative findings. He understands and is well versed on his increased risks. All questions answered.
Patient requesting procedure be done as early as tomorrow so we can get his finances (taxes) in order with his .
-- NPO, will initiate TPN
-- Diagnostic laparoscopy, possible lap assisted gastrointestinal bypass, possible lap assisted venting G-tube, added to schedule tomorrow
Subjective Data
-
Date of Service: June 23, 2023
GI complaints have settled down. No nausea or vomiting. Passing flatus and loose stools. No fevers.
Objective Data
-
Intake and Output
06/22/23 06/23/23 06/24/23
06:59 06:59 06:59
Intake Total 3740 / 3740 2260 / 2260
Output Total 275 / 275
Balance 3465 / 3465 2260 / 2260
Intake:
Oral fluids 1940 / 1940 1260 / 1260
IV fluids (Total) 1800 / 1800 1000 / 1000
Output:
Emesis 275 / 275
Other:
Number of approximated SMALL 1
amounts of urine
Number of approximated MODERATE 1 3
amounts of urine
Number of approximated LARGE 2
amounts of urine
Vital Signs
Temp Pulse Resp BP Pulse Ox
98.4 F 67 12 134/82 97
06/23/23 08:00 06/23/23 09:47 06/23/23 08:00 06/23/23 09:47 06/23/23 08:00
Lab Results
06/23/23 06:08
Calcium 7.7 mg/dl (8.4-10.2) L 06/23/23 06:07
Phosphorus 3.1 mg/dl (2.5-4.5) 06/18/23 14:48
Magnesium 2.1 mg/dl (1.6-2.3) 06/18/23 14:48
Total Bilirubin 1.0 mg/dl (0.2-1.3) 06/23/23 06:07
AST 23 U/L (17-59) 06/23/23 06:07
ALT 11 U/L (0-50) 06/23/23 06:07
Alkaline Phosphatase 75 U/L (38-126) 06/23/23 06:07
Total Protein 3.9 g/dl (6.3-8.2) L 06/23/23 06:07
Albumin 2.1 g/dl (3.5-5.0) L 06/23/23 06:07
Physical Exam
-
Gen: NAD
Abd: soft, NT/ND, non-peritoneal
[2023-06-23 14:06] LABS: ALT (SGPT) 12 U/L (0-50); AST (SGOT) 24 U/L (17-59); Albumin 2.5 g/dl (3.5-5.0); Alkaline Phosphatase 83 U/L (38-126); Blood Urea Nitrogen 14 mg/dl (9-20); Calcium 8.3 mg/dl (8.4-10.2); Carbon Dioxide 24 mmol/L (22-30); Chloride 104 mmol/L (98-107); Estimated Creatinine Clearance 63 ml/min; Glucose 83 mg/dl (70-99); Magnesium 1.7 mg/dl (1.6-2.3); Phosphorus 3.1 mg/dl (2.5-4.5); Potassium 3.5 mmol/L (3.5-5.1); Sodium 134 mmol/L (135-145); Total Bilirubin 1.3 mg/dl (0.2-1.3); Total Protein 4.4 g/dl (6.3-8.2); Triglycerides 115 mg/dl (10-149); eGFR > 60.00
--- NOTE | 2023-06-23 14:16 | CM ---
Reviewed the chart notes. Per notes, diagnostic laparoscopy, possible lap assisted gastrointestinal bypass, possible lap assisted venting G-tube to scheduled for tomorrow. CM continues to be available to patient/family and is monitoring medical
plan for needs at discharge.
Plan: Discharge plan is home with [facility] when medically stable.
[2023-06-23 15:43] VITALS: BP 148/90
[2023-06-23 21:26] VITALS: BMI 22.4
[2023-06-23] MEDS: Parenteral Nutrition, Central 2100 IV (21:26)
[2023-06-23 23:56] VITALS: BP 142/87
[2023-06-24] VITALS (11 sets, daily range): BP systolic 143–169; BP diastolic 77–92; BMI 22.2
[2023-06-24 00:40] LABS: Glucose - Point of Care 111 mg/dl (70-99)
[2023-06-24 06:12] LABS: Glucose - Point of Care 114 mg/dl (70-99)
--- NOTE | 2023-06-24 06:51 | W.PN.ONC2 ---
Today's Communication / Plan
-
For palliative surgery procedure later today.
Impression
Impression
SBO likely secondary to progressive disease (pt has been on gem/abraxane for about a year now)
Left lower lobe infiltrate/atelectasis symptomatic
Anemia hemoglobin 6.5 g/dL following hydration
Post chemoTx pancytopenia - improved.
Plan
Plan
Patient appears to have progressed on 2 lines of standard of care therapy
Obtain office notes from Dr. Debbie Antony at [facility], determine options for next line of therapy
Transfuse hemoglobin < 7.0 g/dl platelets <20 K
Continue supportive measures
Welcome to transition his oncology care to [place]
Subjective/Objective
Chief Complaint
ACS Heme Onc F/U
Subjective
No complaints. For diagnostic laparoscopy, possible lap assisted gastrointestinal bypass, possible lap assisted venting G-tube later today at 4 PM
Vital Signs:
Vital Signs
Temp Pulse Resp BP Pulse Ox
98.5 F 77 16 142/87 100
06/23/23 23:56 06/23/23 23:56 06/23/23 23:56 06/23/23 23:56 06/23/23 23:56
Lab Results:
Laboratory Data
WBC 7.6 10^3/uL (4.8-10.8) 06/23/23 06:08
Hgb 8.2 g/dL (13.0-18.0) L 06/23/23 06:08
Plt Count 144 10^3/uL (130-400) 06/23/23 06:08
PT 15.8 Sec (11.4-14.6) H 06/17/23 19:07
INR 1.25 06/17/23 19:07
APTT 34.7 Sec (23.4-35.0) 06/17/23 19:07
eGFR > 60.00 04/02/24 12:02
Physical Exam
Cardiology: S1 and S2
Pulmonary: Clear
GI: Soft
[2023-06-24 08:43] LABS: % Basophils 0.3 % (0-2); % Eosinophils 1.5 % (0-6); % Immature Granulocytes 1.6 % (0-0.5); % Lymphocytes 4.3 % (20.5-51.1); % Monocytes 15.6 % (1.7-9.3); % Neutrophils 76.7 % (42.2-75.2); Absolute Eosinophils 0.1 10^3/uL (0-0.7); Absolute Immature Granulocytes 0.1 10^3/uL (0-0.05); Absolute Lymphocytes 0.3 10^3/uL (1.2-3.4); Absolute Neutrophils 5.1 10^3/uL (1.4-6.5); Hematocrit 24.6 % (39.0-52.0); Hemoglobin 7.9 g/dL (13.0-18.0); Mean Corp Hgb Conc. 32.1 g/dL (33.0-37.0); Mean Corpuscular Hgb 31.3 pg (27.0-31.0); Mean Corpuscular Volume 97.6 fL (80.0-94.0); Mean Platelet Volume 10.5 fL (7.4-10.4); Nucleated Red Blood Cells % 0 % (-); Platelet Count 166 10^3/uL (130-400); Red Blood Cell Count 2.52 10^6/uL (4.70-6.10); Red Cell Dist. Width 18.6 % (11.5-14.5); White Blood Cell Count 6.7 10^3/uL (4.8-10.8)
[2023-06-24 09:17] LABS: Blood Urea Nitrogen 15 mg/dl (9-20); Carbon Dioxide 26 mmol/L (22-30); Chloride 104 mmol/L (98-107); Estimated Creatinine Clearance 63 ml/min; Glucose 100 mg/dl (70-99); Magnesium 1.8 mg/dl (1.6-2.3); Phosphorus 3.5 mg/dl (2.5-4.5); Potassium 3.7 mmol/L (3.5-5.1); Sodium 135 mmol/L (135-145); eGFR > 60.00
[2023-06-24] MEDS: NSS (PRESERVATIVE FREE) 10 ML IV (09:20)
[2023-06-24] MEDS: PROTONIX IV 40 MG IV (09:20)
[2023-06-24] MEDS: DIOVAN 160 MG PO (09:21)
[2023-06-24] MEDS: HYDROPHOR TOPICAL (09:21)
[2023-06-24] MEDS: ZENPEP DELAYED RELEASE CAPSULE PO ×3 (09:21→17:58)
--- NOTE | 2023-06-24 11:04 | W.PN.HOSP.TC ---
Today's Communication/Plan
-
continue TPN. For surgical intervention today
Assessment / Plan
Assessment / Plan
Assessment:
Partial SBO due to abdominal tumor
- s/p NGT
- on fulls with supplements; now on TPN
- pain control, anti-emetics
discussed with surgery - Dr. Merchant, 06/22
CT scan of abd: Moderate volume ascites.
Small bilateral pleural effusions and mild pericardial thickening.
Overall atrophic pancreas. Soft tissue prominence of pancreatic body which could represent the patient's primary malignancy.
1.7 cm slightly low attenuation right lobe hepatic lesion SUSPICIOUS FOR SOLID MASS/MALIGNANCY. Approximate 3 cm simple appearing hepatic cyst. Additional subcentimeter low-attenuation hepatic lesions too small to characterize.
Proximal small bowel dilatation with somewhat smooth transition in the left abdomen. Cannot exclude small metastatic implant lesion with resultant mild partial small bowel obstruction.
Cannot exclude some gastric wall thickening which may be reactive secondary to ascites or represent implant process.
Distal colonic diverticulosis.
Small bilateral nonobstructing renal calculi.
Discussed with pt potential need for surgical intervention based on CT scan, he relates that he is not ready to give up yet and would favor surgery if this is what is recommended. Surgery spoke with pt and planned intervention later today
stage IV pancreatic cancer with known mets to the liver, abdominal cavity lung, and pelvis
- receiving oncologic care through [facility]. Previously on FOLFIRINOX modified to FOLFIRI=>PD=>Gemcitabine and Abraxane. prior XRT 2021.
- Continue supportive care including pain control, etc.
- Onc following
Pancytopenia
plt better, WBC better
- Likely secondary to chemotherapy.
- Patient is not currently neutropenic.
- Hb 6.5--> 8.7, s/p 2 units PRBCs-->9.6-->8.2-->7.9
- platelets 81-->123-->144-->166k
text sent to Dr. Merchant regarding anemia, as to whether he would like a unit of PRBC given, await his response
Benign Hypertension
- continue ARB, currently 140/96-->150/84, will follow
mild Cachexia
Alb 2.5
temporal muscle wasting
Pt states wt down 35 lbs since diagnosed with the cancer
Chronic Lymphedema
Chronic Venous Stasis Skin Changes
- LE skin changes secondary to lymphedema versus chemo.
- Wound Care eval for topical care recommendations.
Hypokalemia - resolved
K 3.7
DVT Prophylaxis: SCDs
Code Status: DNR
Anticipated Discharge: > 48 hours
Subjective/Interval History
-
Date of Service: June 24, 2023
Feels well and is anxiously awaiting surgical intervention
Objective Data
-
Labs:
Laboratory Results
06/24/23
08:11
WBC 6.7
Hgb 7.9 L
Hct 24.6 L
Plt Count 166
Sodium 135
Potassium 3.7
Chloride 104
Carbon Dioxide 26
BUN 15
Creatinine 1.1
Glucose 100 H
Calcium 8.0 L
Vital Signs:
Vital Signs
Temp Pulse Resp BP Pulse Ox
98.2 F 67 25 150/84 96
06/24/23 07:45 06/24/23 07:45 06/24/23 07:45 06/24/23 07:45 06/24/23 07:45
I&O
06/23/23 06/24/23 06/25/23
06:59 06:59 06:59
Intake Total 2259
Balance 2259
Review of Systems
-
History Source: Patient and Coordinated Provider
Constitutional: Denies Fever
EENT: Reports No Symptoms Reported
Respiratory: Reports No Symptoms
Cardiac: Reports No Symptoms
Abdomen/GI: Reports Abdominal Pain (mild)
Musculoskeletal: Reports No Symptoms
Neuro: Reports No Symptoms
Physical Exam
-
General: Well Developed, Appears Chronically Ill and Cachectic
HEENT: Atraumatic, Moist Mucous Membranes and Other (temporal muscle wasting)
Respiratory: Clear to Auscultation (mild splinting); Negative Wheezes, Rales or Rhonchi
Cardiac: Regular Rhythm and S1/S2
GI: Soft, Normal Bowel Sounds, Tender and Distended
Musculoskeletal: No Clubbing, No Cyanosis and No Edema
Neuro: Awake, Alert and Oriented
--- NOTE | 2023-06-24 11:31 | CM ---
Reviewed the chart notes. Per notes, for palliative surgery procedure later today. Patient remains NPO with TPN. CM continues to be available to patient/family and is monitoring medical plan for needs at discharge.
Plan: Discharge plan is home with [facility] when medically stable.
[2023-06-24 12:41] LABS: Glucose - Point of Care 107 mg/dl (70-99)
--- NOTE | 2023-06-24 13:44 | W.SUR.PREOP ---
Pre-Operative Surgical Note
-
I have examined this patient prior to the performance of the scheduled procedure.
The patient's condition is unchanged from the time of the current History and
Physical and the patient is able to undergo the scheduled procedure.
--- NOTE | 2023-06-24 14:19 | PTCARENOTE ---
pt left unit to go down to OR for surgery at 1330 at bedside, report given to Mitra.
[2023-06-24 16:07] LABS: Glucose - Point of Care 109 mg/dl (70-99)
--- NOTE | 2023-06-24 16:15 | W.IMMPOSTOP ---
Addendum entered and electronically signed by Jordan Merchant MD 06/24/23 16:30:
Dic [id number]
Original Note:
Surgical Immed Post Op Note
-
Primary Surgeon: Mayur
Assisting Surgeon: NATHALY Lanza
Pre-op Diagnosis: Malignant bowel obstruction
Post-op Diagnosis: Malignant bowel obstruction
Procedure Performed: Diagnostic laparoscopy, laparoscopic assisted G-tube placement
Anesthesia Type: General
Specimen / Cultures: None
Estimated Blood Loss: 3 cc
Complications: None
Operative Findings:
1. Moderate volume ascites, metastatic lesions throughout abdomen (liver, several sites of small bowel, peritoneum), anterior stomach healthy
2. Site of most clinically significant bowel obstruction identified, multiple areas of small bowel implants distally making intestinal byass futile
3. Percutaneous 20 Fr Gerardo G-tube inserted along greater curve
[2023-06-24 17:01] LABS: Glucose - Point of Care 128 mg/dl (70-99)
[2023-06-24 18:02] LABS: Hematocrit 26.8 % (39.0-52.0); Hemoglobin 9.1 g/dL (13.0-18.0); Mean Corpuscular Hgb 32.3 pg (27.0-31.0); Mean Platelet Volume 10.2 fL (7.4-10.4); Platelet Count 186 10^3/uL (130-400); Red Blood Cell Count 2.82 10^6/uL (4.70-6.10); Red Cell Dist. Width 18.5 % (11.5-14.5); White Blood Cell Count 8.2 10^3/uL (4.8-10.8)
[2023-06-24 18:09] LABS: Glucose - Point of Care 137 mg/dl (70-99)
[2023-06-24] MEDS: APRESOLINE 5 MG IV (18:14)
--- NOTE | 2023-06-24 18:23 | PTCARENOTE ---
pt back from OR/PACU vitals taken and charted as per protocol, G-tube placed mid abdomen, 3 lap sites intact, no bleeding, no discomfort at the moment. at bedside, plan of care ongoing.
[2023-06-24] MEDS: Parenteral Nutrition, Central 2100 IV (21:13)
[2023-06-24] MEDS: DILAUDID 0.5 MG IV (21:29)
[2023-06-25 00:13] LABS: Glucose - Point of Care 211 mg/dl (70-99)
[2023-06-25 01:27] VITALS: BP 137/78
[2023-06-25 03:07] VITALS: BP 143/77
[2023-06-25 05:18] LABS: Magnesium 1.9 mg/dl (1.6-2.3); Phosphorus 4.4 mg/dl (2.5-4.5)
[2023-06-25 06:08] LABS: Glucose - Point of Care 159 mg/dl (70-99)
--- NOTE | 2023-06-25 08:20 | W.PN.GS2 ---
Addendum entered and electronically signed by Jordan Merchant MD 06/25/23 08:26:

-- OK to resume Xarelto tomorrow (06/25)
Original Note:
Today's Communication / Plan
-
-- Clears ADAT to puree as tolerated, diet consult placed
-- Vent G-tube PRN for abdominal fullness or nausea
-- Flush tube BID with 30 cc to maintain patency
-- F/u in [address] Merchant
Assessment / Plan
-
Patient is a 68 yo M p/w malignant SBO secondary to metastatic pancreatic cancer with CT done [place] [facility] [place] showing reported concern for proximal small bowel obstruction secondary to mid abdominal serosal implant, unchanged pancreatic
mass and hepatic metastases, increased ascites and bilateral pleural effusions. (imaging unavailable). Initially did well with nonoperative management however had an episode of emesis last evening.
Repeat CT Abdomen/Pelvis (06/23/2023): moderate ascites, know pancreas cancer with 1.7 cm and other small < 1 cm mets to liver, small bowel obstruction secondary to implant within the LUQ at the level of the distal jejunum versus proximal ileum,
decompressed distally, gastric wall thickening, small distal rectal mass.
POD#1 s/p diagnostic laparoscopy, laparoscopic assisted G-tube
Recovering well. No concerns.
-- Clears ADAT to puree as tolerated, diet consult placed
-- Vent G-tube PRN for abdominal fullness or nausea
-- Flush tube BID with 30 cc to maintain patency
-- F/u in [address] Merchant
Subjective Data
-
Date of Service: June 25, 2023
No complaints. No leakage around tube. Soreness at G-tube site, manageable. No nausea or emesis.
Objective Data
-
Intake and Output
06/24/23 06/25/23 06/26/23
06:59 06:59 06:59
Intake Total 2079 1190 / 1190
Balance 2079 1190 / 1190
Intake:
Oral fluids 0 / 0 15 15
IV fluids (Total) 1200 / 1200 119 / 119
TPN 44 / 44
norm 75 / 75
TPN/PPN 880 / 880 1056 / 1056
Other:
Number of approximated SMALL 1
amounts of urine
Number of approximated MODERATE 3 3
amounts of urine
Vital Signs
Temp Pulse Resp BP Pulse Ox
98.2 F 68 16 143/77 95
06/25/23 03:07 06/25/23 03:07 06/25/23 03:07 06/25/23 03:07 06/25/23 03:07
Lab Results
06/24/23 17:57
06/24/23 08:11
Calcium 8.0 mg/dl (8.4-10.2) L 06/24/23 08:11
Phosphorus 4.4 mg/dl (2.5-4.5) 06/25/23 04:20
Magnesium 1.9 mg/dl (1.6-2.3) 06/25/23 04:20
Total Bilirubin 1.3 mg/dl (0.2-1.3) 06/23/23 12:02
AST 24 U/L (17-59) 06/23/23 12:02
ALT 12 U/L (0-50) 06/23/23 12:02
Alkaline Phosphatase 83 U/L (38-126) 06/23/23 12:02
Total Protein 4.4 g/dl (6.3-8.2) L 06/23/23 12:02
Albumin 2.5 g/dl (3.5-5.0) L 06/23/23 12:02
Physical Exam
-
Gen: NAD
Abd: soft, mild tenderness around G-tube site, mild distension, incisions c/d/i - no erythema, ecchymosis or drainage, G-tube site c/d/i no leakage
[2023-06-25 08:33] VITALS: BP 132/77
--- NOTE | 2023-06-25 09:03 | W.PN.ONC ---
Today's Communication / Plan
-
Patient appears to have progressed on 2 lines of standard of care therapy
Patient unlikely to tolerate additional systemic therapy without ability to regain oral nutritional capability
Long-term TPN associated with reduced survival and oncologic circumstances
Transfuse hemoglobin < 7.0 g/dl platelets <20 K hemoglobin 9.1 today
Continue supportive measures
Welcome to transition his oncology care to [place]
Impression
Impression
SBO likely secondary to progressive disease (pt has been on gem/abraxane for about a year now)
Left lower lobe infiltrate/atelectasis symptomatic
Anemia hemoglobin 6.5 g/dL following hydration
Post chemoTx pancytopenia - improved.
Subjective/Objective
Subjective/Objective
No new complaints. Somewhat confused by the results of his surgery. Venting G-tube placed.
Vital Signs:
Vital Signs
Temp Pulse Resp BP Pulse Ox
97.6 F 69 16 132/77 95
06/25/23 08:33 06/25/23 08:33 06/25/23 08:33 06/25/23 08:33 06/25/23 08:33
PE unchanged with the exception of postoperative abdominal changes.
Lab Results:
Laboratory Data
WBC 8.2 10^3/uL (4.8-10.8) 06/24/23 17:57
Hgb 9.1 g/dL (13.0-18.0) L 06/24/23 17:57
Plt Count 186 10^3/uL (130-400) 06/24/23 17:57
PT 15.8 Sec (11.4-14.6) H 06/17/23 19:07
INR 1.25 06/17/23 19:07
APTT 34.7 Sec (23.4-35.0) 06/17/23 19:07
eGFR > 60.00 06/24/23 08:11
[2023-06-25] MEDS: PROTONIX IV 40 MG IV (09:22)
[2023-06-25] MEDS: DIOVAN 160 MG PO (09:22)
[2023-06-25] MEDS: HYDROPHOR TOPICAL (09:22)
[2023-06-25] MEDS: NSS (PRESERVATIVE FREE) 10 ML IV (09:22)
[2023-06-25] MEDS: ZENPEP DELAYED RELEASE CAPSULE PO ×2 (09:25→12:59)
[2023-06-25] MEDS: DILAUDID 0.5 MG IV ×3 (09:54→22:36)
--- NOTE | 2023-06-25 10:59 | PN.CDI ---
CDI
- -
CDI:
Physician Documentation Request
Admit Date: 06/17/23 21:37
Dear Doctor Lizett,
Please review the following and provide your response in the progress notes.
Clinical Indicators:
Laboratory Tests
06/17/23 06/19/23 06/20/23
19:07 04:02 03:46
Total Bilirubin 1.4 H 1.6 H 1.5 H
06/21/23 06/22/23 06/23/23
07:59 07:43 06:07
Total Bilirubin 1.4 H 1.7 H 1.0
06/23/23
12:02
Total Bilirubin 1.3
Based on the above, please clarify in the progress notes, the appropriate diagnosis, if significant, that supports the above abnormalities and additional evaluation, monitoring and/or treatment rendered:
Elevated total bilirubin
Abnormal lab value, clinically insignificant
Other
Use of terms such as suspected, likely, concern for, or probable (associated with a specific diagnosis that is being evaluated, monitored, or treated as if it exists) are acceptable and can be coded in the inpatient setting, when documented at the
time of discharge.
Thank you,
Laura Garcia RN BSN CCDS
CDI Specialist
please contact via tiger text
Please use your independent medical judgment in providing your response.
--- NOTE | 2023-06-25 11:19 | W.PN.HOSP.TC ---
Today's Communication/Plan
-
timing of dc to depend on ability to tolerate diet
Assessment / Plan
Assessment / Plan
Assessment:
Partial SBO due to abdominal tumor
- s/p NGT since removed
- on clears with [facility], now on TPN, will defer to Dr. Merchant plans for TPN moving forward. Difficult situation
- pain control, anti-emetics
discussed with surgery - Dr. Merchant, 06/24
CT scan of abd: Moderate volume ascites.
Small bilateral pleural effusions and mild pericardial thickening.
Overall atrophic pancreas. Soft tissue prominence of pancreatic body which could represent the patient's primary malignancy.
1.7 cm slightly low attenuation right lobe hepatic lesion SUSPICIOUS FOR SOLID MASS/MALIGNANCY. Approximate 3 cm simple appearing hepatic cyst. Additional subcentimeter low-attenuation hepatic lesions too small to characterize.
Proximal small bowel dilatation with somewhat smooth transition in the left abdomen. Cannot exclude small metastatic implant lesion with resultant mild partial small bowel obstruction.
Cannot exclude some gastric wall thickening which may be reactive secondary to ascites or represent implant process.
Distal colonic diverticulosis.
Small bilateral nonobstructing renal calculi.
stage IV pancreatic cancer with known mets to the liver, abdominal cavity lung, and pelvis
- receiving oncologic care through [facility] in [facility]. Previously on FOLFIRINOX modified to FOLFIRI=>PD=>Gemcitabine and Abraxane. prior XRT 2021.
- Continue supportive care including pain control, etc.
- Onc following
mild elevation in Bilirubin, most likely related to primary process (Pancreatic Cancer) showing some degree of improvement
Pancytopenia
plt better, WBC better
- Likely secondary to chemotherapy.
- Patient is not currently neutropenic.
- Hb 6.5--> 8.7, s/p 2 units PRBCs-->9.6-->8.2-->7.9-->9.1
- platelets 81-->123-->144-->166-->186k
Benign Hypertension
- continue ARB, currently 140/96-->150/84-->132/77, will follow
mild Cachexia
Alb 2.5
temporal muscle wasting
Pt states wt down 35 lbs since diagnosed with the cancer
Chronic Lymphedema
Chronic Venous Stasis Skin Changes
- LE skin changes secondary to lymphedema versus chemo.
- Wound Care eval for topical care recommendations.
Hypokalemia - resolved
K 3.7
DVT Prophylaxis: SCDs
Code Status: DNR
Anticipated Discharge: 24 - 48 hours
Subjective/Interval History
-
Date of Service: June 25, 2023
Awake, alert, in good spirits
Objective Data
-
Vital Signs:
Vital Signs
Temp Pulse Resp BP Pulse Ox
97.6 F 69 16 132/77 95
06/25/23 08:33 06/25/23 08:33 06/25/23 08:33 06/25/23 09:22 06/25/23 11:19
I&O
06/24/23 06/25/23 06/26/23
06:59 06:59 06:59
Intake Total 2079 1190 / 1190
Balance 2079 1190 / 1190
Review of Systems
-
History Source: Patient and Coordinated Provider
Constitutional: Denies Fever
EENT: Reports No Symptoms Reported
Respiratory: Reports No Symptoms
Cardiac: Reports No Symptoms
Abdomen/GI: Reports Abdominal Pain (mild)
Musculoskeletal: Reports No Symptoms
Neuro: Reports No Symptoms
Physical Exam
-
General: Well Developed, Appears Chronically Ill and Cachectic
HEENT: Atraumatic, Moist Mucous Membranes and Other (temporal muscle wasting)
Respiratory: Clear to Auscultation (mild splinting); Negative Wheezes, Rales or Rhonchi
Cardiac: Regular Rhythm and S1/S2
GI: Soft, Normal Bowel Sounds, Tender, Distended and Peg Tube (post G-tube vent placed for abdominal fullness 4/3)
Musculoskeletal: No Clubbing, No Cyanosis and No Edema
Neuro: Awake, Alert and Oriented
[2023-06-25 11:25] VITALS: BMI 22.4
[2023-06-25 12:14] LABS: Glucose - Point of Care 116 mg/dl (70-99)
[2023-06-25] MEDS: ZENPEP DELAYED RELEASE CAPSULE 3 CAPSULE PO ×2 (13:49→17:49)
--- NOTE | 2023-06-25 14:25 | CM ---
Reviewed the chart notes and spoke with the patient the bedside. Patient is POD#1 s/p diagnostic laparoscopy, laparoscopic assisted G-tube. CM continues to be available to patient/family and is monitoring medical plan for needs at discharge.
Plan: Patient anticipates discharging to home with [facility] services when medically stable.
[2023-06-25 15:02] VITALS: BP 158/86
--- NOTE | 2023-06-25 16:15 | PTCARENOTE ---
pt receiving TPN @ 88ml/hr. pt restarted on clear liquid diet this afternoon and is tolerating at this time. pt needed prn dose of dilaudid this afternoon for increased abdominal pain around the surgical sites. laparoscopic sites are held intact
with surgical adhesive. pt at bedside during dayshift care. pt states that he only wants 1-2 of his Creon replacement since he is not fully eating at this time.
[2023-06-25 18:42] LABS: Glucose - Point of Care 118 mg/dl (70-99)
[2023-06-25] MEDS: Parenteral Nutrition, Central 2100 IV (21:02)
[2023-06-25 21:40] LABS: Glucose - Point of Care 106 mg/dl (70-99)
[2023-06-25 23:21] VITALS: BP 160/89
[2023-06-26 06:00] VITALS: BMI 22.5
[2023-06-26 06:18] LABS: % Basophils 0.2 % (0-2); % Eosinophils 0.8 % (0-6); % Immature Granulocytes 1.3 % (0-0.5); % Lymphocytes 4.9 % (20.5-51.1); % Monocytes 19.7 % (1.7-9.3); % Neutrophils 73.1 % (42.2-75.2); Absolute Eosinophils 0.1 10^3/uL (0-0.7); Absolute Immature Granulocytes 0.1 10^3/uL (0-0.05); Absolute Lymphocytes 0.5 10^3/uL (1.2-3.4); Absolute Monocytes 1.9 10^3/uL (0.1-0.6); Absolute Neutrophils 6.9 10^3/uL (1.4-6.5); Hematocrit 26.9 % (39.0-52.0); Mean Corp Hgb Conc. 33.5 g/dL (33.0-37.0); Mean Corpuscular Volume 95.7 fL (80.0-94.0); Mean Platelet Volume 10.8 fL (7.4-10.4); Nucleated Red Blood Cells % 0 % (-); Platelet Count 234 10^3/uL (130-400); Red Blood Cell Count 2.81 10^6/uL (4.70-6.10); Red Cell Dist. Width 18.5 % (11.5-14.5); White Blood Cell Count 9.5 10^3/uL (4.8-10.8)
[2023-06-26 06:25] LABS: INR 1.23; PT 15.6 Sec (11.4-14.6)
[2023-06-26 06:52] LABS: ALT (SGPT) < 10 U/L (0-50); AST (SGOT) 21 U/L (17-59); Albumin 2.2 g/dl (3.5-5.0); Alkaline Phosphatase 67 U/L (38-126); Blood Urea Nitrogen 25 mg/dl (9-20); Calcium 7.9 mg/dl (8.4-10.2); Carbon Dioxide 28 mmol/L (22-30); Chloride 101 mmol/L (98-107); Estimated Creatinine Clearance 70 ml/min; Glucose 86 mg/dl (70-99); Phosphorus 3.4 mg/dl (2.5-4.5); Potassium 4.3 mmol/L (3.5-5.1); Sodium 132 mmol/L (135-145); Total Bilirubin 0.8 mg/dl (0.2-1.3); eGFR > 60.00
[2023-06-26 07:35] VITALS: BP 170/93
[2023-06-26 07:50] LABS: Glucose - Point of Care 95 mg/dl (70-99)
[2023-06-26] MEDS: ZENPEP DELAYED RELEASE CAPSULE 3 CAPSULE PO ×3 (08:35→18:11)
[2023-06-26] MEDS: NSS (PRESERVATIVE FREE) 10 ML IV (08:36)
[2023-06-26] MEDS: HYDROPHOR 1 APPLIC TOPICAL (08:36)
[2023-06-26] MEDS: PROTONIX IV 40 MG IV (08:36)
[2023-06-26] MEDS: DIOVAN 160 MG PO (08:36)
--- NOTE | 2023-06-26 09:37 | W.PN.GS2 ---
Today's Communication / Plan
-
Advance diet
Assessment / Plan
-
Patient is a 68 yo M p/w malignant SBO secondary to metastatic pancreatic cancer with CT [place] [facility] reported concern for proximal small bowel obstruction secondary to mid abdominal serosal implant, unchanged pancreatic
mass and hepatic metastases, increased ascites and bilateral pleural effusions. (imaging unavailable). Initially did well with nonoperative management however had an episode of emesis last evening.
Repeat CT Abdomen/Pelvis (06/23/2023): moderate ascites, know pancreas cancer with 1.7 cm and other small < 1 cm mets to liver, small bowel obstruction secondary to implant within the LUQ at the level of the distal jejunum versus proximal ileum,
decompressed distally, gastric wall thickening, small distal rectal mass.
POD#2 s/p diagnostic laparoscopy, laparoscopic assisted G-tube
Recovering well. No concerns.
PEG tube teaching done at bedside
-- Pureed diet as tolerated, diet consult placed
-- Vent G-tube PRN for abdominal fullness or nausea
-- Flush tube BID with 30 cc to maintain patency
-- F/u in [address] Merchant
-- Consult placed to for VNA arrangements
Last bag of TPN today
Subjective Data
-
Date of Service: June 26, 2023
Patient seen and examined at bedside. Tolerating clears without n/v. Some abdominal cramping.
Objective Data
-
Intake and Output
06/25/23 06/26/23 06/27/23
06:59 06:59 06:59
Intake Total 1190 / 1190 1855
Balance 1190 / 1190 1855
Intake:
Oral fluids 15 / 15 800 / 800
IV fluids (Total) 119 / 119
TPN 44 / 44
norm 75 / 75
TPN/PPN 1056 / 1056 1056 / 1056
Other:
Number of approximated MODERATE 3 3
amounts of urine
Number of approximated LARGE 4
amounts of urine
Vital Signs
Temp Pulse Resp BP Pulse Ox
97.9 F 85 16 170/93 94
06/26/23 07:35 06/26/23 07:35 06/26/23 07:35 06/26/23 07:35 06/26/23 07:35
Lab Results
06/26/23 05:52
06/26/23 05:52
Calcium 7.9 mg/dl (8.4-10.2) L 06/26/23 05:52
Phosphorus 3.4 mg/dl (2.5-4.5) 06/26/23 05:52
Magnesium 2.0 mg/dl (1.6-2.3) 06/26/23 05:52
Total Bilirubin 0.8 mg/dl (0.2-1.3) 06/26/23 05:52
AST 21 U/L (17-59) 06/26/23 05:52
ALT < 10 U/L (0-50) 06/26/23 05:52
Alkaline Phosphatase 67 U/L (38-126) 06/26/23 05:52
Total Protein 4.0 g/dl (6.3-8.2) L 06/26/23 05:52
Albumin 2.2 g/dl (3.5-5.0) L 06/26/23 05:52
Physical Exam
-
Gen: NAD
Abd: soft, mild tenderness around G-tube site, mild distension, incisions c/d/i - no erythema, ecchymosis or drainage, G-tube site c/d/i no leakage
--- NOTE | 2023-06-26 10:13 | PN.CDI ---
CDI
- -
CDI:
Physician Documentation Request
Admit Date: 06/17/23 21:37
Dear Doctor Fermin,
Please review the following and provide your response in the progress notes.
Clinical Indicators:
Laboratory Tests
06/17/23 06/18/23 06/19/23
19:07 04:51 04:02
Sodium 133 L 136 138
06/20/23 06/21/23 06/22/23
03:46 07:59 07:43
Sodium 136 135 133 L
06/23/23 06/23/23 06/24/23
06:07 12:02 08:11
Sodium 133 L 134 L 135
06/26/23
05:52
Sodium 132 L
Based on the above, please clarify in the progress notes, the appropriate diagnosis, if significant, that supports the above abnormalities and additional evaluation, monitoring and/or treatment rendered:
Hyponatremia
Abnormal lab value, clinically insignificant
Other
Use of terms such as suspected, likely, concern for, or probable (associated with a specific diagnosis that is being evaluated, monitored, or treated as if it exists) are acceptable and can be coded in the inpatient setting, when documented at the
time of discharge.
Thank you,
Laura Garcia RN BSN CCDS
CDI Specialist
please contact via tiger text
Please use your independent medical judgment in providing your response.
[2023-06-26] MEDS: APRESOLINE 5 MG IV (11:34)
--- NOTE | 2023-06-26 12:36 | W.PN.HOSP.TC ---
Addendum entered and electronically signed by Luz Marina Christensen MD 06/26/23 13:07:
Hyponatremia
Original Note:
Today's Communication/Plan
-
finish TPN tonight
diet as per GS
likely DC in 24 hours
Assessment / Plan
Assessment / Plan
Assessment:
Partial SBO due to abdominal tumor
- initially was doing well with conservative treatment but pain occurred
- underwent diagnostic laparoscopy, laparoscopic assisted G-tube on 06/24/23
- on puree diet
- has G-tube, venting procedure instructed to patient.
- Flush tube BID with 30 cc to maintain patency
- f/u GS in 2 weeks
- complete TPN bag this evening
- pain control
- VNA consulted
stage IV pancreatic cancer with known mets to the liver, abdominal cavity lung, and pelvis
- receiving oncologic care through [facility] in [facility]. Previously on FOLFIRINOX modified to FOLFIRI=>PD=>Gemcitabine and Abraxane. prior XRT 2021.
- Continue supportive care including pain control, etc.
- Onc following
mild elevation in Bilirubin, most likely related to primary process (Pancreatic Cancer) showing some degree of improvement
Pancytopenia
- Likely secondary to chemotherapy.
- Patient is not currently neutropenic.
- Anemia and thrombocytopenia improving
Benign Hypertension
- continue ARB, monitor BPs
mild Cachexia
Temporal muscle wasting
- TPN
- can take Ensure outpatient
Chronic Lymphedema
Chronic Venous Stasis Skin Changes
- LE skin changes secondary to lymphedema versus chemo.
- Wound Care eval for topical care recommendations.
Hypokalemia - resolved
DVT Prophylaxis: SCDs
Code Status: DNR
Anticipated Discharge: Within 24 hours
Subjective/Interval History
-
Date of Service: June 26, 2023
tolerating puree
he learned how to vent his G tube
Objective Data
-
Labs:
Laboratory Results
06/26/23
05:52
WBC 9.5
Hgb 9.0 L
Hct 26.9 L
Plt Count 234 D
PT 15.6 H
INR 1.23
Sodium 132 L
Potassium 4.3
Chloride 101
Carbon Dioxide 28
BUN 25 H
Creatinine 1.0
Glucose 86
Calcium 7.9 L
Total Bilirubin 0.8
AST 21
ALT < 10
Alkaline Phosphatase 67
Vital Signs:
Vital Signs
Temp Pulse Resp BP Pulse Ox
97.9 F 72 16 162/93 94
06/26/23 07:35 06/26/23 11:34 06/26/23 07:35 06/26/23 11:34 06/26/23 07:35
I&O
06/25/23 06/26/23 06/27/23
06:59 06:59 06:59
Intake Total 1190 / 1190 1855
Balance 1190 / 1190 1855
Physical Exam
-
General: No Apparent Distress and Appears Chronically Ill
HEENT: Normocephalic and Atraumatic
Respiratory: Negative Wheezes or Rales
Cardiac: Regular Rhythm and S1/S2
GI: Soft and Other (G tube)
Musculoskeletal: No Edema
Neuro: AO x 3
Hematologic / Lymphatic: No Lymphadenopathy
Psych: Calm
Data Reviewed
-
Total Time Spent with Patient (in minutes): 45
Labs: Labs Reviewed by me
[2023-06-26 12:46] LABS: Glucose - Point of Care 109 mg/dl (70-99)
--- NOTE | 2023-06-26 14:23 | CM ---
Addendum entered by Elizabeth Lopez RN 06/26/23 16:07:
[facility] has arranged for [facility] to televisit with the patient on Thursday and they will start on Thursday. IMM signed and placed on chart.
[facility]
Original Note:
Reviewed the chart notes. Patient does not have a PCP for VN orders. Surgery will follow for G-tube issues, but not any other medical issue. NESS spoke with Maricel Hernandez from [facility]. She is reaching out to [place] [facility] to see if they will be able
to see patient early in the week, usually takes a week to set up house call physician. CM continues to be available to patient/family and is monitoring medical plan for needs at discharge.
Plan: Discharge to home. [facility] VN services will follow once a PCP is on board.
[2023-06-26 15:51] VITALS: BP 153/95
[2023-06-26 18:12] LABS: Glucose - Point of Care 106 mg/dl (70-99)
[2023-06-26 21:51] LABS: Glucose - Point of Care 100 mg/dl (70-99)
[2023-06-26] MEDS: DILAUDID 0.5 MG IV (21:52)
[2023-06-26] MEDS: FLUSH (NSS) 1 FLUSH IV (21:53)
[2023-06-26] MEDS: FLUSH (NSS) 2 FLUSH IV (21:54)
[2023-06-26 23:33] VITALS: BP 126/73
[2023-06-27 01:49] LABS: Glucose - Point of Care 90 mg/dl (70-99)
[2023-06-27 06:00] VITALS: BMI 22.3
[2023-06-27 06:19] LABS: Glucose - Point of Care 79 mg/dl (70-99)
[2023-06-27 07:14] VITALS: BP 152/82
[2023-06-27] MEDS: DIOVAN 160 MG PO (08:15)
[2023-06-27] MEDS: ZENPEP DELAYED RELEASE CAPSULE 3 CAPSULE PO ×3 (08:15→16:23)
[2023-06-27] MEDS: NSS (PRESERVATIVE FREE) 10 ML IV (08:16)
[2023-06-27] MEDS: HYDROPHOR 1 APPLIC TOPICAL (08:16)
[2023-06-27] MEDS: PROTONIX IV 40 MG IV (08:16)
[2023-06-27 12:20] LABS: Glucose - Point of Care 95 mg/dl (70-99)
--- NOTE | 2023-06-27 13:17 | W.PN.HOSP.TC ---
Today's Communication/Plan
-
likely DC Thursday, continue G- tube vent teaching and puree
Assessment / Plan
Assessment / Plan
Assessment:
Partial SBO due to abdominal tumor
- initially was doing well with conservative treatment but pain occurred
- underwent diagnostic laparoscopy, laparoscopic assisted G-tube on 06/24/23
- on puree diet
- has G-tube, venting procedure instructed to patient.
- Flush tube BID with 30 cc to maintain patency
- f/u GS in 2 weeks
- pain control
- VNA consulted
stage IV pancreatic cancer with known mets to the liver, abdominal cavity lung, and pelvis
- receiving oncologic care through [facility] in [facility]. Previously on FOLFIRINOX modified to FOLFIRI=>PD=>Gemcitabine and Abraxane. prior XRT 2021.
- Continue supportive care including pain control, etc.
- Onc following
mild elevation in Bilirubin, most likely related to primary process (Pancreatic Cancer) showing some degree of improvement
Pancytopenia
- Likely secondary to chemotherapy.
- Patient is not currently neutropenic.
- Anemia and thrombocytopenia improving
Benign Hypertension
- continue ARB, monitor BPs
mild Cachexia
Temporal muscle wasting
- TPN
- can take Ensure outpatient
Chronic Lymphedema
Chronic Venous Stasis Skin Changes
- LE skin changes secondary to lymphedema versus chemo.
- Wound Care eval for topical care recommendations.
Hypokalemia - resolved
DVT Prophylaxis: SCDs
Code Status: DNR
Anticipated Discharge: Within 24 hours
Subjective/Interval History
-
Date of Service: June 27, 2023
tolerating puree
teaching for G tube venting ongoing
Objective Data
-
Vital Signs:
Vital Signs
Temp Pulse Resp BP Pulse Ox
97.9 F 83 16 145/103 97
06/27/23 07:14 06/27/23 08:15 06/27/23 07:14 06/27/23 08:15 06/27/23 07:14
I&O
06/26/23 06/27/23 06/28/23
06:59 06:59 06:59
Intake Total 1855 1120 / 1120
Balance 1855 1120 / 1120
Physical Exam
-
General: No Apparent Distress
HEENT: Normocephalic and Atraumatic
Respiratory: Negative Wheezes or Rales
Cardiac: Regular Rhythm and S1/S2
Genito-urinary: No Costovertebral Tender
Neuro: AO x 3
Hematologic / Lymphatic: No Lymphadenopathy
Psych: Calm
Data Reviewed
-
Total Time Spent with Patient (in minutes): 41
Labs: Labs Reviewed by me
--- NOTE | 2023-06-27 13:21 | W.PN.ONC2 ---
Today's Communication / Plan
-
- continue to ADAT
Impression
Impression
SBO likely secondary to progressive disease (pt has been on gem/abraxane for about a year now)
Left lower lobe infiltrate/atelectasis symptomatic
Anemia hemoglobin 6.5 g/dL following hydration
Post chemoTx pancytopenia - improved.
Plan
Plan
s/p G tube for decompression due to SBO from peritoneal deposits. Pt slowly advancing diet
Pt expressed interest in transfering care closer to here. Obtaining office notes from Dr. Debbie Antony at [facility], determine options for next line of therapy
Transfuse hemoglobin < 7.0 g/dl platelets <20 K
Continue supportive measures
Subjective/Objective
Chief Complaint
pancreatic cancer, bowel obstruction
Subjective
pt tolerating puree diet s/p G-tube for decompression. He still has abdominal tenderness, some nausea. no vomiting
Vital Signs:
Vital Signs
Temp Pulse Resp BP Pulse Ox
97.9 F 83 16 145/103 97
06/27/23 07:14 06/27/23 08:15 06/27/23 07:14 06/27/23 08:15 06/27/23 07:14
Lab Results:
Laboratory Data
WBC 9.5 10^3/uL (4.8-10.8) 06/26/23 05:52
Hgb 9.0 g/dL (13.0-18.0) L 06/26/23 05:52
Plt Count 234 10^3/uL (130-400) D 06/26/23 05:52
PT 15.6 Sec (11.4-14.6) H 06/26/23 05:52
INR 1.23 06/26/23 05:52
APTT 34.7 Sec (23.4-35.0) 06/17/23 19:07
eGFR > 60.00 06/26/23 05:52
Physical Exam
HEENT: No Jaundice
GI: No Normal Bowel Sounds (slow but present) or Distended
Extremities: No Edema
Neuro: Non Focal
[2023-06-27 15:10] VITALS: BP 155/81
[2023-06-27 15:15] VITALS: BP 155/81
[2023-06-27 21:30] LABS: Glucose - Point of Care 92 mg/dl (70-99)
[2023-06-27] MEDS: DILAUDID 0.5 MG IV (21:53)
[2023-06-27] MEDS: FLUSH (NSS) 2 FLUSH IV (21:54)
[2023-06-27 23:29] VITALS: BP 154/91
[2023-06-28] MEDS: DILAUDID 0.5 MG IV (02:05)
[2023-06-28] MEDS: FLUSH (NSS) 2 FLUSH IV (02:07)
[2023-06-28 06:00] VITALS: BMI 21.9
[2023-06-28 08:17] VITALS: BP 148/90
[2023-06-28] MEDS: ZENPEP DELAYED RELEASE CAPSULE 3 CAPSULE PO ×2 (08:48→13:21)
[2023-06-28] MEDS: NSS (PRESERVATIVE FREE) 10 ML IV (08:49)
[2023-06-28] MEDS: HYDROPHOR 1 APPLIC TOPICAL (08:50)
[2023-06-28] MEDS: PROTONIX IV 40 MG IV (08:50)
[2023-06-28] MEDS: DIOVAN 160 MG PO (09:42)
--- NOTE | 2023-06-28 11:15 | W.PN.ONC2 ---
Today's Communication / Plan
-
ok for discharge today, will arrange office follow up
Impression
Impression
SBO likely secondary to progressive disease (pt has been on gem/abraxane for about a year now)
Left lower lobe infiltrate/atelectasis symptomatic
Anemia hemoglobin 6.5 g/dL following hydration
Post chemoTx pancytopenia - improved.
Plan
Plan
s/p G tube for decompression due to SBO from peritoneal deposits. Pt slowly advancing diet
Pt expressed interest in transfering care closer to here. Obtaining office notes from Dr. Debbie Antony at [facility], determine options for next line of therapy
Transfuse hemoglobin < 7.0 g/dl platelets <20 K
Continue supportive measures
Subjective/Objective
Chief Complaint
pancreatic cancer, SBO
Subjective
pt tolerated meals over past 24 hours without nausea, vomiting or worsening abdominal pain.
Vital Signs:
Vital Signs
Temp Pulse Resp BP Pulse Ox
98.0 F 79 16 148/90 97
06/28/23 08:17 06/28/23 09:42 06/28/23 08:17 06/28/23 09:42 06/28/23 08:17
Lab Results:
Laboratory Data
WBC 9.5 10^3/uL (4.8-10.8) 06/26/23 05:52
Hgb 9.0 g/dL (13.0-18.0) L 06/26/23 05:52
Plt Count 234 10^3/uL (130-400) D 06/26/23 05:52
PT 15.6 Sec (11.4-14.6) H 06/26/23 05:52
INR 1.23 06/26/23 05:52
APTT 34.7 Sec (23.4-35.0) 06/17/23 19:07
eGFR > 60.00 06/26/23 05:52
Physical Exam
HEENT: No Jaundice
GI: Soft and Distended
Extremities: No Edema
Neuro: Non Focal
Review of Systems
Review of Systems
Constitutional: Denies Fever
Gastrointestinal: Denies Nausea/Vomiting
[2023-06-28 12:15] LABS: Glucose - Point of Care 92 mg/dl (70-99)
--- NOTE | 2023-06-28 14:18 | W.PN.HOSP.TC ---
Addendum entered and electronically signed by Luz Marina Christensen MD 06/29/23 11:15:
severe malnutrition in the context of chronic illness as evidenced by <50% intake est needs x 3 months, muscle loss, edema.
Original Note:
Today's Communication/Plan
-
dc to home/VN
Assessment / Plan
Assessment / Plan
Assessment:
Partial SBO due to abdominal tumor
- initially was doing well with conservative treatment but pain occurred
- underwent diagnostic laparoscopy, laparoscopic assisted G-tube on 06/24/23
- on puree diet
- has G-tube, venting procedure instructed to patient.
- Flush tube BID with 30 cc to maintain patency
- f/u GS in 2 weeks
- pain control
stage IV pancreatic cancer with known mets to the liver, abdominal cavity lung, and pelvis
- receiving oncologic care through [facility] in [facility]. Previously on FOLFIRINOX modified to FOLFIRI=>PD=>Gemcitabine and Abraxane. prior XRT 2021.
- Continue supportive care including pain control, etc.
- Onc following
mild elevation in Bilirubin, most likely related to primary process (Pancreatic Cancer) showing some degree of improvement
Pancytopenia
- Likely secondary to chemotherapy.
- Patient is not currently neutropenic.
- Anemia and thrombocytopenia improving
Benign Hypertension
- continue ARB, monitor BPs
mild Cachexia
Temporal muscle wasting
- TPN
- can take Ensure outpatient
Chronic Lymphedema
Chronic Venous Stasis Skin Changes
- LE skin changes secondary to lymphedema versus chemo.
- Wound Care eval for topical care recommendations.
Hypokalemia - resolved
DVT Prophylaxis: SCDs
Code Status: DNR
More than 30 minutes spent in discharge including
Final examination of the patient
Summarizing hospital stay
Instructions for continuing care to all relevant caregivers
Preparation of discharge records, prescriptions, and referral forms
Total time spent (in minutes): 41
Anticipated Discharge: Today
Subjective/Interval History
-
Date of Service: June 28, 2023
doing well no complaints
Objective Data
-
Vital Signs:
Vital Signs
Temp Pulse Resp BP Pulse Ox
98.0 F 79 16 148/90 97
06/28/23 08:17 06/28/23 09:42 06/28/23 08:17 06/28/23 09:42 06/28/23 08:17
I&O
06/27/23 06/28/23 06/29/23
06:59 06:59 06:59
Intake Total 1120 / 1120 840 / 840
Balance 1120 / 1120 840 / 840
Physical Exam
-
General: No Apparent Distress
HEENT: Normocephalic and Atraumatic
Respiratory: Negative Wheezes or Rales
Cardiac: Regular Rhythm and S1/S2
GI: Soft
Psych: Calm
Data Reviewed
-
Total Time Spent with Patient (in minutes): 41
Labs: Labs Reviewed by me
--- NOTE | 2023-06-28 14:23 | W.DS.TRANS ---
DC Summary - [employer]
-
Discharge Instructions:
Discharge Diagnosis/Procedures partial SBO s/p diagnostic laparoscopy,
laparoscopic assisted G-tube on 06/24/23. hx of
stage 4 pancreatic cancer
Diet Grind all food,Supplements
Additional Diets puree
Activity As tolerated
Bathing Restrictions None
Other Services VN
Instructions: How to Care for Your Gastrostomy Tube
Stand-Alone Forms:
Changes to Home Medications: No
Discharge Medications:
DC Medications w/original date entered in [facility]
dlmriq-[id number] 24,000-76,000-120,000 unit capsule,delayed rel (Creon) 3 cap PO MEALS Gastrointestinal Issue 06/17/23
rivaroxaban 10 mg tablet 10 mg PO .SEE BELOW Blood Clot Prevention/Tx 06/17/23
valsartan 160 mg tablet 160 mg PO DAILY Blood Pressure 06/17/23
ondansetron 4 mg disintegrating tablet 4 mg PO Q8H PRN nausea and vomiting #20 tabs 06/26/23
oxycodone 10 mg tablet 10 mg PO Q6HPRN PRN severe pain #20 tabs 06/26/23
pantoprazole 40 mg tablet,delayed release (Protonix) 40 mg PO DAILY #30 tabs 06/26/23
Home Medication Changes
Pending Results: No
Total time spent discharging patient (in min): 41
[2023-06-28 15:09] VITALS: BP 139/82
--- NOTE | 2023-06-28 15:14 | W.PN.UPDATE ---
Update Note
Progress Note Update
Patient seen and examined at bedside with spouse present.
Doing well overall, tolerating diet with venting of g-tube prn.
Incisions healing well. Additional g-tube teaching provided with patient and spouse.
Clamp applied to tube to prevent reflux/clogging. Discussed flushing tube after venting, etc.
Recommend immersion shell worker for pureeing foods at home as well as protein shakes/supplements
Discharge today with outpatient follow up planned with Dr. Merchant for post op follow up as an outpatient
--- NOTE | 2023-06-28 17:31 | CM ---
Addendum entered by Edie Winslow RN 06/29/23 09:43:
Spoke with [facility]; the patient will be seen at home today by the [facility] doctor, and the was notified.
Original Note:
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 Room air. Dysphagia diet. G-tube - venting prn.
Patient discharged to home by nurse without notification to CM.
Spoke with patient's Kailey;
she says she was instructed by the DRIER UNLOADER in the management of the G-tube. is aware of [facility] appointment tomorrow- she thought patient was to have home visit from their MD but prior CM note states televisit- she will call Maricel from [facility]
tomorrow morning to clarify- her # was provided. provided transport home today.
Plan home today with Esther Grubbs MD appointment in conjunction with [facility].
--- NOTE | 2023-06-28 18:49 | PTCARENOTE ---
pt discharged home today with [facility], teaching done with at bedside how to vent/irrigate the G-tube. PT and seems to understand the procedure.
--- NOTE | 2023-06-29 10:40 | PN.CDI ---
CDI
- -
CDI:
Physician Documentation Request
Admit Date: 06/17/23 21:37
Dear Doctor Fermin,
Please review the following and provide your response in the progress notes.
Clinical Indicators:
Set Rider, 06/25
#CBW: 156 lb 12.8 oz BMI 22.5 normal range 06/25; 145 lbs 15.136 oz 06/18.
#...Pt reports 35lb weight loss since cancer dx (2021) reflective of 18.4%
#...weight loss x 2 years not significant.
#NFPE: moderate temporal, clavicle, and buccal muscle wasting. +1 pitting edema per RN shift assessment.
#Per ASPEN/AND guidelines, pt meets for severe malnutrition in the context of chronic illness as evidenced by <50% intake est needs x 3 months, muscle loss, edema.
PN, 06/27
#mild Cachexia
#Temporal muscle wasting
#- TPN
Based on the information above and your clinical assessment, please clarify which of the following most accurately represents the patient's nutritional status?
Severe Malnutrition of chronic illness
Cachexia
Other (please specify)
[place] Criteria (ACP Hospitalist 2017)
2 or more criteria must be present for either
non severe or severe malnutrition
Note that the criteria differs related to the
presence of an acute or chronic illness
Chronic Illness
Energy Intake Non Severe: <75% for >1 month
Severe: <75% for >1 month
Weight Loss Non Severe: 5% over 1 month
7.5% over 3 months
10% over 6 months
20% over 1 year
Severe: >5% over 1 month
>7.5% over 3 months
>10% over 6 months
>20% over 1 year
Body Fat Non Severe: Mild Loss
Severe: Severe Loss
Muscle Mass Non Severe: Mild Loss
Severe: Severe Loss
Use of terms such as suspected, likely, concern for, or probable (associated with a specific diagnosis that is being evaluated, monitored, or treated as if it exists) are acceptable and can be coded in the inpatient setting, when documented at the
time of discharge.
Thank you,
Laura Garcia RN BSN CCDS
CDI Specialist
please contact via tiger text
Please use your independent medical judgment in providing your response.
== END 2023-06-28 16:34 | disposition home health service (06) | DRG 420 ==
LOC: 2 NORTH 21:37
PROVIDERS: Internal Medicine; Physician Assistant Medical; ADMITTING PHYSICIAN Hospitalist; ATTENDING PHYSICIAN Internal Medicine; EMERGENCY PHYSICIAN Emergency Medicine; OTHER PHYSICIAN Internal Medicine Hematology & Oncology; OTHER PHYSICIAN Surgery
PROC: 0D9670Z Drainage of Stomach with Drainage Device, Via Natural or Artificial Opening (ICD-10-PCS; 2023-06-17)
PROC: 30243N1 Transfusion of Nonautologous Red Blood Cells into Central Vein, Percutaneous Approach (ICD-10-PCS; 2023-06-18)
PROC: 3E0436Z Introduction of Nutritional Substance into Central Vein, Percutaneous Approach (ICD-10-PCS; 2023-06-23)
PROC: 0WJG4ZZ Inspection of Peritoneal Cavity, Percutaneous Endoscopic Approach (ICD-10-PCS; 2023-06-24)
PROC: 0DH64UZ Insertion of Feeding Device into Stomach, Percutaneous Endoscopic Approach (ICD-10-PCS; 2023-06-24)
DX: C25.9 Malignant neoplasm of pancreas, unspecified (principal); D61.810 Antineoplastic chemotherapy induced pancytopenia; E43 Unspecified severe protein-calorie malnutrition; K56.690 Other partial intestinal obstruction; C78.5 Secondary malignant neoplasm of large intestine and rectum; C78.7 Secondary malignant neoplasm of liver and intrahepatic bile duct; J98.11 Atelectasis; J90 Pleural effusion, not elsewhere classified; R18.8 Other ascites; R64 Cachexia; E87.1 Hypo-osmolality and hyponatremia; E16.2 Hypoglycemia, unspecified; E87.6 Hypokalemia; I10 Essential (primary) hypertension; I87.8 Other specified disorders of veins; I89.0 Lymphedema, not elsewhere classified; T45.1X5A Adverse effect of antineoplastic and immunosuppressive drugs, initial encounter; Z66 Do not resuscitate; Z85.07 Personal history of malignant neoplasm of pancreas; Z85.46 Personal history of malignant neoplasm of prostate; Z87.442 Personal history of urinary calculi; Z90.79 Acquired absence of other genital organ(s); Z92.3 Personal history of irradiation; Z68.21 Body mass index [BMI] 21.0-21.9, adult
CPT/HCPCS: 43752; 71045; 74022; 74177; 80048; 80053; 82962; 83036; 83690; 83735; 84100; 84132; 84478; 85025; 85027; 85610; 85730; 86850; 86900; 86901; 86920; 97163; 97166; 97530; 97535; 99285; P9016; Q9967

== ENCOUNTER 2023-07-25 12:32 | Emergency (ER) | payer MEDICARE, OTHER, SELFPAY ==
[2023-07-25] VITALS (8 sets, daily range): BP systolic 70–106; BP diastolic 53–71; BMI 17.3
[2023-07-25] MEDS: NSS 1000 IV ×2 (13:15)
--- NOTE | 2023-07-25 13:23 | ED.GENMED ---
History of Present Illness
General
Chief Complaint: Catheter/Tube Problem
Source: patient, records and spouse
Exam Limitations: none
Time Seen by Provider: 07/25/23 12:50
Nursing documentation reviewed up to this point in time: agreed with
Travel History
Have you had any contact with someone who has COVID-19?: No
Do you have any symptoms of coronavirus? Fever > 100 degrees, chills, cough, shortness of breath, sore throat, loss of taste or smell, muscle aches, or headache?: No
History of Present Illness
History of Present Illness:
68-year-old male with a past medical history of stage IV pancreatic cancer and chronic small bowel obstruction as a result of tumor burden who presents to the emergency department with his for evaluation of leaking around his PEG tube and
weight loss. Patient notably has recently transition to hospice through [facility]. He was admitted from 06/17/2023 until 06/28/2023 for right partial small bowel obstruction; during that time he had a diagnostic laparoscopy and ultimately venting PEG
tube placement by Dr. Merchant. They have also been using PEG tube for hydration but not for nutrition. He had been following at [facility] for pancreatic cancer treatment including chemotherapy but opted recently to discontinue
therapy and to proceed with hospice care. He has noticed that since 07/09/2023 he has not been able to pass a bowel movement. He has had increasing difficulty tolerating foods�was initially on a pur�ed diet but since has downgraded to ensure and
over the past few days has been doing liquids only including hydration through PEG tube. He has had significant visible weight loss although he is not sure exactly how many pounds he has lost since discharge. His says that he is visibly
cachectic over the past month. His main concern and come to the emergency room is comfort�he is hoping to have some hydration here and to have PEG tube assessed to ensure good function and to help with leakage. He tells me he is not having
significant pain right now. He has not had a lot of vomiting but says that the PEG has significant output.
Past History
Past History
ED Past Medical History: Cancer
ED Past Surgical History: Urological and Other
Social History
Tobacco: Non-smoker
Alcohol: None
Drug: None
Personal:
Living: with family
Employment: Retired
Review of Systems
Review of Systems
All Other Systems: ROS reviewed and negative except as documented in HPI and ROS
Constitutional: Reports weight loss; Denies fever
Respiratory: Denies trouble breathing
Cardiac: Denies chest pain
ABD/GI: Denies abdominal pain or nausea
: Denies flank pain
Phy Exam
Physical Exam
Physical Exam:
General: Awake, alert, oriented x3; cachectic and chronically ill-appearing
Head: Normocephalic, atraumatic
Eyes: Conjunctiva normal
Throat: Airway intact, dry mucous membranes
Neck: Trachea midline, supple without meningismus
Lungs: Breathing comfortably not in distress
Heart: Regular rate
Abd: Soft, nondistended, no tenderness, PEG tube in place with no obvious leakage
Neuro: No gross deficit
Skin: no rash
Extremities: Warm and well-perfused
Scores
Heart Failure Risk
Heart Failure Risk Score: Not Applicable
Heart Score for Chest Pain Patients
STEMI patient?: Not applicable
Withdrawal Assessment of Alcohol
Withdrawal Assessment Completed?: Not applicable
Course
Orders/Labs/Results
Orders:
Orders
07/25/23 13:12
0.9% Sodium Chloride 1000 ml [Nss] 1,000 ml IV BOLUS
0.9% Sodium Chloride 1000 ml [Nss] 1,000 ml IV BOLUS
Tube Check [CR Cont Inj Eval Tube(by Rad)] Urgent
Comment:
Reason For Exam: leakage from PEG
07/25/23 14:25
Complete Blood Count/With Diff Urgent
Comprehensive Metabolic Panel Urgent
Magnesium Urgent
Phos [Phosphorus] Urgent
07/25/23 14:47
Dextrose 50%-Water [Dextrose 50% Syringe] 25 grams IV NOW STA
07/25/23 15:33
CT Abd/pel Without Iv Or Oral Urgent
Comment:
Reason For Exam: PEG placement
Abnormal Lab Results
07/25/23 07/25/23
14:25 15:44
RBC 2.32 L 10^6/uL
(4.70-6.10)
Hgb 7.5 L g/dL
(13.0-18.0)
Hct 21.6 L %
(39.0-52.0)
MCH 32.3 H pg
(27.0-31.0)
RDW 18.0 H %
(11.5-14.5)
Plt Count 74 L 10^3/uL
(130-400)
MPV 11.8 H fL
(7.4-10.4)
Abs Immat Gran (auto) 0.1 H 10^3/uL
(0-0.05)
Absolute Neuts (auto) 8.0 H 10^3/uL
(1.4-6.5)
Absolute Lymphs (auto) 0.3 L 10^3/uL
(1.2-3.4)
Absolute Monos (auto) 0.9 H 10^3/uL
(0.1-0.6)
Immature Gran % 1.2 H %
(0-0.5)
Neutrophils % 86.3 H %
(42.2-75.2)
Lymphocytes % 2.9 L %
(20.5-51.1)
Monocytes % 9.5 H %
(1.7-9.3)
Sodium 128 L mmol/L
(135-145)
Chloride 93 L mmol/L
(98-107)
BUN 104 H* mg/dl
(9-20)
Creatinine 2.1 H mg/dL
(0.7-1.3)
Glucose 53 L* mg/dl
(70-99)
Calcium 7.4 L mg/dl
(8.4-10.2)
Phosphorus 4.9 H mg/dl
(2.5-4.5)
Magnesium 2.6 H mg/dl
(1.6-2.3)
Total Protein 4.7 L g/dl
(6.3-8.2)
Albumin 2.5 L g/dl
(3.5-5.0)
POC Glucose 139 H mg/dl
(70-99)
07/25/23 14:25
07/25/23 14:25
Vital Signs
Initial and Last Documented VS:
Initial Vital Signs
Temp Pulse Resp BP
36.4 C 87 18 70/53
07/25/23 12:57 07/25/23 12:57 07/25/23 12:57 07/25/23 12:57
Last Documented Vital Signs
Temp Pulse Resp BP
36.4 C 87 18 85/67
07/25/23 12:57 07/25/23 12:57 07/25/23 12:57 07/25/23 17:00
MDM/Problems Addressed
Differential Diagnosis Includes:
Balloon rupture, dislodged PEG, bowel obstruction
MDM/Problems Addressed:
68-year-old male with end-stage pancreatic cancer, recently placed venting PEG tube for chronic bowel obstruction related to tumor burden presents to the emergency room for evaluation of leaking from PEG tube and weight loss. Recently transition to
hospice care. He is hypotensive but has otherwise normal vitals. He is requesting some IV hydration�given that we are placing IV we will check basic chemistry and cell counts. Will perform tube check on PEG�no obvious leakage noted at bedside
assessment. Will reassess after the above.
Labs reviewed�patient continues to have worsening anemia. He has an injury with a doubling of his creatinine and an elevated BUN. His electrolytes are reasonable considering clinical course. His glucose is severely low at 53�given x 1 amp IV.
Continue with fluids, awaiting tube check.
Patient feeling a bit better after fluids, blood pressure slightly improved. He is to check seems to confirm placement but radiologist was concerned about whether it was actually in the stomach recommended follow-up CT. On follow-up CT tube does
indeed appear to be in appropriate position. I adjusted bumper to hold tube tighter to the skin to avoid leakage. I had a long discussion with the patient and his to confirm that they indeed wish to continue with hospice care�he tells me that
he wishes to go home to live out the remainder of his life on hospice care.
Chronic conditions affecting care:
End-stage pancreatic cancer on hospice
*Radiology
Radiology exam reviewed: radiology read reviewed
*Pulse Oximetry
Patient hypoxic: no
*Critical Care Note
Total Time (30-74mins, 75-104mins- exclusive of procedures): Not Applicable
Data Reviewed
Review of Other/Old Records Reveals: Labs, Records and Discharge Summary
Source: patient, records and spouse
Patient Management
Escalation/DeEscalation of care consider admission/obs:
Admission would be indicated but patient is on hospice and requesting discharge
ED Attending Note
-
Portions of this chart may have been created with voice recognition software.� Occasional wrong word or��sound alike� substitutions may have occurred due to the inherent limitations of voice recognition software.
Discharge Plan
Departure
Patient Disposition: Home with Hospice
Date of Disposition: 07/25/23
Time of Disposition: 18:30
Patient with high blood pressure during this ER visit?: No
Discharge Problem:
Protein-calorie malnutrition, severe, Pancreatic cancer, Hypovolemia, TANGELA (acute kidney injury), Hypoglycemia, Leaking PEG tube
Instructions: How to Care for Your Gastrostomy Tube
Prescriptions:
No Action
valsartan 160 mg Tablet
160 mg PO DAILY
Creon 24,000-76,000 -120,000 unit Capsule,Delayed Release(Dr/Ec)
3 cap PO MEALS
rivaroxaban 10 mg Tablet
10 mg PO .SEE BELOW
Patient Comments:
06/17/2023, pt. stopped taking this med. in anticipation for invasive surgery. Prescribed to take daily.
pantoprazole [Protonix] 40 mg tablet,delayed release (DR/EC)
40 mg PO DAILY Qty: 30 0RF
ondansetron 4 mg tablet,disintegrating
4 mg PO Q8H PRN (Reason: nausea and vomiting) Qty: 20 0RF
oxycodone 10 mg Tablet
10 mg PO Q6HPRN PRN (Reason: severe pain) Qty: 20 0RF
Patient Comments:
06/17/2023, pt. filled this med. on 05/13/2023 for 60 tablets per PDMP.
Referrals:
JESSICA RUIZ [Other]
Activity Restrictions/Additional Instructions:
Thank you for visiting the Emergency Department at [facility].
1. Please schedule a follow up appointment as directed. Call first thing tomorrow morning to make an appointment.
2. If indicated, please take your medications as instructed and indicated on discharge paperwork.
3. If any of your symptoms do not improve, or persist, or become more severe within 6-12 hours, please return to the emergency department for further care.
4. Please return to the emergency department if you develop a headache, neck pain/stiffness, fever greater than 100.4F, chest pain, shortness of breath, persistent nausea, vomiting, slurred speech, difficulty walking, numbness/tingling, weakness,
signs of infection or any other symptoms that are worrisome to you.
Please call [phone] if you have any questions.
Interventions
Interventions:
*Risk Screen - Suicide Last Done: 07/25/23 13:01
*General Assessment Last Done: 07/25/23 13:01
*Neglect/Abuse Screening Last Done: 07/25/23 13:01
ED- Fall Risk Assessment Last Done: 07/25/23 13:03
*ED COVID-19 Vaccine History Last Done: 07/25/23 13:03
BZ-Idavni-Evjtoljizr Assessment Last Done: 07/25/23 13:03
ED-Male Genitourinary Assessment Last Done: 07/25/23 13:03
Discharge Date and Time
Print Language: UKRAINIAN
[2023-07-25 14:31] LABS: % Basophils 0.1 % (0-2); % Immature Granulocytes 1.2 % (0-0.5); % Lymphocytes 2.9 % (20.5-51.1); % Monocytes 9.5 % (1.7-9.3); % Neutrophils 86.3 % (42.2-75.2); Absolute Immature Granulocytes 0.1 10^3/uL (0-0.05); Absolute Lymphocytes 0.3 10^3/uL (1.2-3.4); Absolute Monocytes 0.9 10^3/uL (0.1-0.6); Hematocrit 21.6 % (39.0-52.0); Hemoglobin 7.5 g/dL (13.0-18.0); Mean Corp Hgb Conc. 34.7 g/dL (33.0-37.0); Mean Corpuscular Hgb 32.3 pg (27.0-31.0); Mean Corpuscular Volume 93.1 fL (80.0-94.0); Nucleated Red Blood Cells % 0 % (-); Red Blood Cell Count 2.32 10^6/uL (4.70-6.10); White Blood Cell Count 9.3 10^3/uL (4.8-10.8)
[2023-07-25 14:45] LABS: ALT (SGPT) 16 U/L (0-50); AST (SGOT) 29 U/L (17-59); Albumin 2.5 g/dl (3.5-5.0); Alkaline Phosphatase 94 U/L (38-126); Blood Urea Nitrogen 104 mg/dl (9-20); Calcium 7.4 mg/dl (8.4-10.2); Carbon Dioxide 24 mmol/L (22-30); Chloride 93 mmol/L (98-107); Estimated Creatinine Clearance 25 ml/min; Glucose 53 mg/dl (70-99); Magnesium 2.6 mg/dl (1.6-2.3); Phosphorus 4.9 mg/dl (2.5-4.5); Potassium 3.8 mmol/L (3.5-5.1); Sodium 128 mmol/L (135-145); Total Bilirubin 1.2 mg/dl (0.2-1.3); Total Protein 4.7 g/dl (6.3-8.2); eGFR 33.45
[2023-07-25 14:58] LABS: Mean Platelet Volume 11.8 fL (7.4-10.4); Platelet Count 74 10^3/uL (130-400)
[2023-07-25] MEDS: DEXTROSE 50% SYRINGE 25 GRAMS IV (15:10)
[2023-07-25 15:46] LABS: Glucose - Point of Care 139 mg/dl (70-99)
--- NOTE | 2023-07-25 19:10 | EDRN ---
Discharging pt for pt's primary nurse, Karuna Christianson RN. VAT called to de-access port
--- NOTE | 2023-07-25 19:19 | EDRN ---
Per , pt is currently scheduled for [address] pickler to go home. and pt aware trying to obtain earlier transport. VAT called and will de-access port closer to pt pickup time.
--- NOTE | 2023-07-25 19:39 | EDRN ---
Addendum entered by Bronwyn Barry RN 07/25/23 19:53:
Also, this RN gave pt and his discharge instructions. All questions answered. Pt's signed and took d/c papers home.
Original Note:
Pt's left for the night to wait for pt at home. Called pharmacy to order correct morphine SL - pt and said he squirts the morphine in his mouth against his cheek, does not swallow it.
[2023-07-25] MEDS: ROXANOL ORAL CONCENTRATE 10 MG PO (19:50)
--- NOTE | 2023-07-25 21:03 | VATNOTE ---
Patient's right port was flushed with 10ml nss and then heparin flush per protocol as patient is being discharged.
== END 2023-07-25 22:04 | disposition hospice, home (50) ==
LOC: EMR 12:32
PROVIDERS: EMERGENCY PHYSICIAN Emergency Medicine
DX: E43 Unspecified severe protein-calorie malnutrition (principal); E16.2 Hypoglycemia, unspecified; E86.1 Hypovolemia; N17.9 Acute kidney failure, unspecified; K56.699 Other intestinal obstruction unspecified as to partial versus complete obstruction; K94.23 Gastrostomy malfunction; C25.9 Malignant neoplasm of pancreas, unspecified; Z51.5 Encounter for palliative care; Z85.07 Personal history of malignant neoplasm of pancreas; D64.9 Anemia, unspecified
CPT/HCPCS: 99285; 96374; 96361; 49465; 74176; 80053; 82962; 83735; 84100; 85025